=== PATIENT | female | born 1960 | race African-American/Black ===

== ENCOUNTER 2019-08-09 21:15 | Inpatient (IN) | payer SELFPAY ==
[2019-08-09 22:15] LABS: #Eosinphils 0.4 thou/uL (0.0-0.7); #Lymphocytes 2.1 thou/uL (1.20-3.40); #Monocytes 0.5 thou/uL (0.11-0.59); #Neutrophils 4.9 thou/uL (1.40-6.50); %Basophils 0.6 % (0.0-1.0); %Eosinophils 4.8 % (0.0-10.0); %Lymphocytes 26.8 % (21.0-51.0); %Monocytes 6.3 % (0.0-10.0); %Neutrophils 61.6 % (42.0-75.0); Hemoglobin 12.7 g/dL (12.0-16.0); Mean Corpuscular HGB CONC 30.4 g/dL (32.0-36.0); Mean Corpuscular Volume 79.1 fL (78.0-98.0); Mean Platelet Volume 9.4 fL (7.4-10.4); Platelet Count 343 thou/uL (130-400); RBC Distribution Width 15.2 % (11.5-14.5); Red Blood Cell (RBC) Count 5.28 mill/uL (4.20-5.40); White Blood Cell (WBC) Count 7.9 thou/uL (4.8-10.8)
[2019-08-09 22:36] LABS: ALT (SGPT) 28 U/L (8-55); AST (SGOT) 34 U/L (5-34); Albumin 2.2 g/dL (3.5-5.0); Alkaline Phosphatase 102 U/L (40-110); Anion Gap 12 mmol/L (10-20); BUN (Urea Nitrogen) 19 mg/dL (9.8-20.1); Bilirubin, Total Less than 0.2 mg/dL (0.2-1.2); Calc. Creatinine Clearance 0 mL/min (70-130); Calcium 8.3 mg/dL (7.8-10.44); Carbon Dioxide 25 mmol/L (22-29); Chloride 111 mmol/L (98-107); Estimated GFR-MDRD 29; Globulin 3.7 g/dL (2.4-3.5); Glucose 128 mg/dL (70-105); Potassium 4.1 mmol/L (3.5-5.1); Protein, Total 5.9 g/dL (6.0-8.3); Sodium 144 mmol/L (136-145)
[2019-08-09] MEDS ORDERED: Furosemide 40 MG/4 ML VIAL ONE (22:43)
--- NOTE | 2019-08-09 22:47 | RAD ---
EXAM: CHEST ONE VIEW HISTORY: Bilateral lower extremity edema for 4 months. COMPARISON: None FINDINGS: Cardiac silhouette is enlarged. Pulmonary vasculature is at the upper limits of normal. The lungs are clear. The osseous structures are intact. IMPRESSION: 1. Cardiomegaly. 2. No acute cardiopulmonary process
[2019-08-09 23:13] LABS: CKMB 8.1 ng/mL (0-6.6)
--- NOTE | 2019-08-10 00:29 | PDOC.HHP ---
Hospitalist HPI - History of Present Illness Swelling and shortness of breath History of Present Illness: 59 yo AAF with DM-2 on insulin, HTN presented to ER due to worsening swelling in her legs and SOB. She states that she has had swelling in her legs since March,. The swelling has been getting worse. She states that she has been informed she has CHF and she is on lasix but has continued to gain weight. She reports abdominal distention and worsening shortness of breath. Currently, she states she is short of breath even with sitting. She reports orthopnea and PND. She states that her leg swelling is upto her thighs. No N/V/D/C. No fever, chills. She denies CP or lightheadedness but has palpitations with minimal activity. No rash or bruising. No burning or pain with urination. ED Course: Given 40 mg Lasix and placed on Nitropaste Hospitalist ROS - Review of Systems All other systems reviewed; all pertinent +/- noted in HPI/Subj Hospitalist History - Past Medical History Source: patient Cardiac: reports: CHF, HTN Endocrine: reports: Diabetes - Past Surgical History Past Surgical History: reports: Cholecystectomy, Hysterectomy, Other (Left toe amputation) - Family History Family History: reports: cardiac disorder (brothers) - Social History Smoking Status: Former smoker Tobacco Type: cigarettes Alcohol: reports: Occassional Drugs: reports: none Living Situation: Alone Activity level: independent ambulation - Exam General Appearance: awake alert, ill appearing Eye: PERRL, anicteric sclera ENT: normocephalic atraumatic, no oropharyngeal lesions, moist mucosa Neck: supple, symmetric, no thyromegaly, no lymphadenopathy Heart: RRR, no murmur, no gallops, no rubs, normal peripheral pulses Heart - other findings: 3+ bilateral pitting pedal edema upto the thighs; abdominal wall edema Respiratory: no wheezes, no ronchi, normal chest expansion, no tachypnea, rales (bilaterally) Gastrointestinal: soft, non-tender, normal bowel sounds, no palpable masses, distended Extremities: no cyanosis, clubbing Skin: normal turgor, no lesions, no rashes Neurological: cranial nerve grossly intact, normal sensation to touch, no weakness, no focal deficits, no new deficit Psychiatric: normal affect, normal behavior, A&O x 3 Hospitalist Results - Labs Result Diagrams: 03/04/20 21:59 08/09/19 21:59 Lab results: WBC 7.9 thou/uL (4.8-10.8) 08/09/19 21:59 Hgb 12.7 g/dL (12.0-16.0) 08/09/19 21:59 Hct 41.8 % (36.0-47.0) 08/09/19 21:59 MCV 79.1 fL (78.0-98.0) 08/09/19 21:59 Plt Count 343 thou/uL (130-400) 08/09/19 21:59 Neutrophils % 61.6 % (42.0-75.0) 08/09/19 21:59 Sodium 144 mmol/L (136-145) 08/09/19 21:59 Potassium 4.1 mmol/L (3.5-5.1) 08/09/19 21:59 Chloride 111 mmol/L (98-107) H 08/09/19 21:59 Carbon Dioxide 25 mmol/L (22-29) 08/09/19 21:59 BUN 19 mg/dL (9.8-20.1) 08/09/19 21:59 Creatinine 1.78 mg/dL (0.6-1.1) H 08/09/19 21:59 Glucose 128 mg/dL (70-105) H 08/09/19 21:59 Calcium 8.3 mg/dL (7.8-10.44) 08/09/19 21:59 Total Bilirubin Less than 0.2 mg/dL (0.2-1.2) L 08/09/19 21:59 AST 34 U/L (5-34) 08/09/19 21:59 ALT 28 U/L (8-55) 08/09/19 21:59 Alkaline Phosphatase 102 U/L (40-110) 08/09/19 21:59 CK-MB (CK-2) 8.1 ng/mL (0-6.6) H* 08/09/19 21:59 Troponin I 0.037 ng/mL (< 0.028) H 08/09/19 21:59 B-Natriuretic Peptide 211.9 pg/mL (0-100) H 08/09/19 21:59 Serum Total Protein 5.9 g/dL (6.0-8.3) L 08/09/19 21:59 Albumin 2.2 g/dL (3.5-5.0) L 08/09/19 21:59 - EKG Interpretation EKG: Personally reviewed - Sinus rhythm; T-inversions in leads I & aVL - Radiology Interpretation Chest x-ray Status: image reviewed by me (No consolidation; Pulmonary vascular congestion) Hospitalist H&P A/P - Problem (1) CHF (congestive heart failure) Code(s): I50.9 - HEART FAILURE, UNSPECIFIED Status: Acute Qualifiers: Heart failure type: unspecified Heart failure chronicity: acute Qualified Code(s): I50.9 - Heart failure, unspecified Assessment and Plan: Admit to inpatient status. Expected to stay at least 2 midnights High risk due to need for IV diuretics and need for evaluation and management of her CHF IV lasix; Fluid and salt restriction Daily wts. Strict I/Os Cardio consult ECHO Elevated troponins and EKG changes likely related to demand ischemia (2) Pedal edema Code(s): R60.0 - LOCALIZED EDEMA Status: Acute Assessment and Plan: Likely related to CHF Will obtain US venous dopplers to R/o DVT Will obtain arterial dopplers as patient reports angioplasty for PAD in September, (3) DM type 2 (diabetes mellitus, type 2) Status: Chronic Qualifiers: Diabetes mellitus terminal worker insulin use: with mcc use Diabetes mellitus complication status: with kidney complications Diabetes mellitus complication detail: with chronic kidney disease Chronic kidney disease stage : stage 3 (moderate) Qualified Code(s): E11.22 - Type 2 diabetes mellitus with diabetic chronic kidney disease; N18.3 - Chronic kidney disease, stage 3 ( moderate); Z79.4 - remote computer terminal operator (current) use of insulin Assessment and Plan: Check HA1C Diabetic diet Basal and SSI Monitor sugars and adjust regimen accordingly (4) HTN (hypertension) Code(s): I10 - ESSENTIAL (PRIMARY) HYPERTENSION Status: Chronic Qualifiers: Hypertension type: essential hypertension Qualified Code(s): I10 - Essential (primary) hypertension Assessment and Plan: Elevated BP likely related to volume overload and Acute CHF Nitro paste placed on patient IV diuretics Monitor BP and adjust meds as needed - Plan Plan: CODE STATUS - FULL CODE Granddaughter is health care proxy
[2019-08-10] MEDS ORDERED: Nitroglycerin 2% Ointment 1 INCH/1 GM Packet ONE (00:30)
[2019-08-10] MEDS ORDERED: Ondansetron PF 4 MG/2 ML Vial IVP PRN (00:49)
[2019-08-10] MEDS ORDERED: Senokot S 8.6-50 MG TAB PO PRN (00:49)
[2019-08-10] MEDS ORDERED: Dextrose 50% Abboject 50 ML SYRINGE SLOW IVP PRN (00:57)
[2019-08-10] MEDS ORDERED: Dextrose 5% in Water 1,000 ML IV PRN (00:57)
[2019-08-10] MEDS ORDERED: HumaLOG 300 UNITS/3 ML VIAL SC PRN (00:57)
[2019-08-10 02:15] LABS: Hemoglobin A1c 6.5 % (4.0-6.0)
[2019-08-10 02:30] LABS: Troponin I 0.026 ng/mL (< 0.028)
[2019-08-10] MEDS ORDERED: Acetaminophen 325 MG TAB ONE (03:59)
[2019-08-10] MEDS: Acetaminophen 325 MG TAB PO PRN (04:01)
[2019-08-10 06:44] LABS: #Basophils 0.1 thou/uL (0.0-0.2); #Eosinphils 0.3 thou/uL (0.0-0.7); #Monocytes 0.5 thou/uL (0.11-0.59); #Neutrophils 4.2 thou/uL (1.40-6.50); %Basophils 0.8 % (0.0-1.0); %Eosinophils 4.2 % (0.0-10.0); %Lymphocytes 28.4 % (21.0-51.0); %Monocytes 6.5 % (0.0-10.0); %Neutrophils 60.1 % (42.0-75.0); Hemoglobin 12.4 g/dL (12.0-16.0); Mean Corpuscular HGB CONC 30.4 g/dL (32.0-36.0); Mean Corpuscular Hemoglobin 24.8 pg (27.0-31.0); Mean Corpuscular Volume 81.5 fL (78.0-98.0); Mean Platelet Volume 9.4 fL (7.4-10.4); Platelet Count 317 thou/uL (130-400); RBC Distribution Width 15.6 % (11.5-14.5); Red Blood Cell (RBC) Count 5.01 mill/uL (4.20-5.40)
[2019-08-10 06:58] LABS: Phosphorus 4.2 mg/dL (2.3-4.7)
[2019-08-10 07:05] LABS: Troponin I 0.021 ng/mL (< 0.028)
[2019-08-10 07:17] LABS: ALT (SGPT) 26 U/L (8-55); AST (SGOT) 31 U/L (5-34); Alkaline Phosphatase 89 U/L (40-110); Anion Gap 11 mmol/L (10-20); BUN (Urea Nitrogen) 19 mg/dL (9.8-20.1); Bilirubin, Total 0.2 mg/dL (0.2-1.2); Calc. Creatinine Clearance 67 mL/min (70-130); Calcium 7.6 mg/dL (7.8-10.44); Carbon Dioxide 23 mmol/L (22-29); Chloride 114 mmol/L (98-107); Estimated GFR-MDRD 38; Globulin 2.8 g/dL (2.4-3.5); Glucose 118 mg/dL (70-105); Magnesium 1.9 mg/dL (1.6-2.6); Protein, Total 4.8 g/dL (6.0-8.3); Sodium 144 mmol/L (136-145)
--- NOTE | 2019-08-10 09:06 | ULT ---
BILATERAL LOWER EXTREMITY VENOUS DOPPLER ULTRASOUND: HISTORY: Bilateral lower extremity edema. TECHNIQUE: Carvajal scale, color flow, and spectral Doppler imaging of the deep venous systems of the lower extremit ies performed bilaterally. FINDINGS: There is good flow, compression, and augmentation in the common femoral, femoral, deep femoral, popli teal, posterior tibial, and greater saphenous veins on either side. IMPRESSION: No evidence of deep vein thrombosis in either lower extremity. POS: [facility]
[2019-08-10] MEDS ORDERED: Haloperidol 1 MG TAB ONE (09:28)
[2019-08-10] MEDS ORDERED: Aspirin Chewable 81 MG TAB ONE (09:28)
[2019-08-10] MEDS ORDERED: Furosemide 20 MG/2 ML VIAL ONE (09:28)
[2019-08-10] MEDS ORDERED: Furosemide 40 MG/4 ML VIAL ONE (09:28)
[2019-08-10] MEDS ORDERED: Heparin 1,000 UNITS/ML VIAL ONE (09:28)
--- NOTE | 2019-08-10 09:36 | ULT ---
BILATERAL LOWER EXTREMITY DOPPLER ULTRASOUND: DATE: 08/10/2019. HISTORY: Peripheral arterial disease. TECHNIQUE: Multiplanar grayscale sonographic imaging of the arterial structures of bilateral lower extremities o btained with color flow/spectral analysis. FINDINGS: The right common femoral artery is patent and demonstrates a biphasic waveform as does the right prof unda femoral artery. The superficial femoral artery on the right is patent and demonstrates an abnormal monophasic waveform. There is patency of the right popliteal artery with an abnormal tardus parvis monophasic waveform. Right anterior tibial artery, posterior tibial artery, and dorsalis pedis artery are patent and also demonstrate abnormal monophasic tardus parvus waveforms. The left common femoral artery is patent and demonstrates a biphasic waveform as does the left profun da femoral artery. A normal triphasic waveform is noted within the proximal left superficial femoral artery. In the mid and distal left superficial femoral artery there is an abnormal monophasic waveform. Abnormal tardus parvus monophasic waveforms are noted within the left popliteal artery, anterior tibial artery, posterior tibial artery, and dorsalis pedis artery. The left posterior tibial artery demonstrates a markedly diminished amplitude. Right Lower Extremity: VESSEL PSV (CM/S) SENIOR SOURCING MANAGER 199 Profunda femoral artery 108 SFA proximal 186 SFA mid 53 SFA distal 69 Popliteal artery 42 EZE 46 PERFORMANCE ANALYST 34 DPA 34 Left Lower Extremity: VESSEL PSV (CM/S) SENIOR SOURCING MANAGER 104 Profunda femoral artery 121 SFA proximal 158 SFA mid 130 SFA distal 140 Popliteal artery 71 EZE 85 PERFORMANCE ANALYST 18 DPA 94 IMPRESSION: Arterial structures of bilateral lower extremities are patent. There are markedly abnormal monophasic waveforms noted within bilateral lower extremities from the mid SFA through the runoff vessels indicating multifocal hemodynamically significant stenosis. Recommend further assessment via CT angio gram of the abdomen/pelvis/bilateral lower extremities utilizing a CT runoff protocol. Transcribed Date/Time: 08/10/2019 10:01 AM
[2019-08-10] MEDS: Aspirin Chewable 81 MG TAB PO SCH (09:43)
[2019-08-10] MEDS: Heparin 5,000 UNITS/ML VIAL SC SCH ×3 (09:43→20:51)
[2019-08-10] MEDS: Furosemide 100 MG/10 ML VIAL SLOW IVP SCH ×3 (09:43→20:52)
--- NOTE | 2019-08-10 09:44 | ULT ---
BILATERAL RENAL ULTRASOUND: DATE: 08/10/2019 HISTORY: Acute kidney insufficiency, chronic kidney disease. FINDINGS: The right kidney measures 10.2 cm in length and the left kidney measures 11.9 cm in length. No hydron ephrosis seen on either side. There is a 4.4 x 4.0 x 4.5 cm right renal cyst. Cortical echogenicity a nd thickness is otherwise within normal limits. The urinary bladder is unremarkable with a volume of 279 mL. IMPRESSION: Right renal cyst. POS: [facility]
[2019-08-10] MEDS: HumuLIN 70/30 (300 UNITS/3 ML VIAL) SC SCH ×2 (10:45→16:40)
[2019-08-10] MEDS ORDERED: hydrALAZINE 25 MG TAB PO SCH (11:45)
[2019-08-10] MEDS ORDERED: Carvedilol 25 MG TAB PO SCH (11:45)
--- NOTE | 2019-08-10 14:42 | CON ---
DATE OF CONSULTATION: HISTORY OF PRESENT ILLNESS: The patient is a 59-year-old woman, who presents for evaluation of increasing dyspnea and edema. The patient states she has previous history of congestive heart failure. The patient has been treated on chronic diuretic therapy. The patient states that she has been compliant with her medication. She has a history of peripheral vascular disease and previously undergone PTCA of her extremities. The patient has multiple cardiac risk factors and states she has been compliant with her medication. She presented with worsening edema. The patient denied having any chest discomfort. PAST MEDICAL HISTORY: 1. Peripheral vascular disease. 2. Hypertension. 3. Diabetes mellitus. 4. Dyslipidemia. PAST SURGICAL HISTORY: Toe amputation, hysterectomy, and cholecystectomy. SOCIAL HISTORY: Former smoker. ALLERGIES: NO KNOWN DRUG ALLERGIES. MEDICATIONS: See nursing list. PHYSICAL EXAMINATION: GENERAL: Obese woman, in no acute distress. VITAL SIGNS: Blood pressure 180/80. NECK: Showed no jugular venous distention. LUNGS: Clear to auscultation. HEART: Regular rate and rhythm. Normal S1 and S2. 1/6 systolic murmur. No S3. ABDOMEN: Distended with a scar. EXTREMITIES: Showed severe bilateral edema. LABORATORY RESULTS: Sodium 144, potassium 4.0, chloride 114, bicarb 23, BUN 19, creatinine 1.68, and glucose is 118. Troponin was 0.021. White blood cell count 7.0, hemoglobin 12.4, hematocrit 40.8, and her platelets are 317. IMAGING DATA: rEKG normal sinus rhythm with a nonspecific T-wave abnormality. IMPRESSION: 1. Congestive heart failure probably secondary to diastolic dysfunction. 2. Peripheral vascular disease. 3. Hypertension. 4. Diabetes mellitus. 5. Dyslipidemia. 6. Obesity. PLAN: This patient presents with congestive heart failure. We will obtain an echocardiogram. The patient is being diuresed with IV Lasix. We will try to adjust her cardiac medications. We will need followup including at some point stress testing to evaluate for evidence of ischemia. We will follow this patient with you through her hospitalization. Job ID: [id number] [facility]
[2019-08-10 15:17] VITALS: BMI 38.0
--- NOTE | 2019-08-10 16:32 | PDOC.HOSPP ---
- Subjective Encounter Date: 08/10/19 Encounter Time: 15:00 Subjective: F/u: CHF The patient says she ambulated to bathroom without significant Shortness of breath. She has no chest pain. Still has significant leg swelling. She states she ate 800 mg of sodium so far today She states she gaind over 20 pounds of fluid - Objective Vital Signs & Weight: Vital Signs (12 hours) Temp Pulse Pulse Resp BP BP Pulse Ox 08/10/19 13:25 99.2 F 70 18 181/79 H 96 08/10/19 11:30 66 184/107 H Weight Weight 257 lb 6.4 oz Result Diagrams: 08/10/19 06:30 08/10/19 06:30 Additional Labs: Accuchecks 08/10/19 08/10/19 10:44 06:41 POC Glucose 93 104 Hospitalist ROS - Review of Systems Constitutional: denies: fever, chills Respiratory: denies: cough, dry - Medication Medications: Active Medications Generic Name Dose Route Start Last Admin Trade Name Freq PRN Reason Stop Dose Admin Acetaminophen 650 mg 08/10/19 00:49 08/10/19 04:01 Tylenol PO 650 mg Q4H PRN Administration Headache/Fever/Mild Pain (1-3) Aspirin 81 mg 08/10/19 09:00 08/10/19 09:43 Aspirin Chewable PO 81 mg DAILY IVETH Administration Furosemide 60 mg 08/10/19 09:00 08/10/19 09:43 Lasix SLOW IVP 60 mg TID IVETH Administration Heparin Sodium (Porcine) 5,000 units 08/10/19 09:00 08/10/19 09:43 Heparin SC 5,000 units TID IVETH Administration Insulin Human Isoph/Insulin Regular 10 units 08/10/19 08:00 08/10/19 10:45 Humulin 70/30 SC 10 unit BID-WM IVETH Administration - Exam General Appearance: NAD, awake alert Eye: PERRL, anicteric sclera ENT: normocephalic atraumatic, no oropharyngeal lesions Neck: no JVD Heart: RRR, no murmur, no gallops, no rubs Respiratory: CTAB Respiratory - other findings: mild rales at bases Gastrointestinal: soft, non-tender, non-distended Extremities: no cyanosis, no clubbing, 2+ LE edema Skin: normal turgor, no lesions, no rashes Neurological: cranial nerve grossly intact, normal sensation to touch, no focal deficits, no new deficit Musculoskeletal: normal tone, normal strength, no muscle wasting Hosp A/P - Plan ECHO: EF 55-60%, moderate MR, moderate to severe TR, moderate pulmonary hypertension Chest X ray: no acute disease Renal ultrasound: right renal cyst Venous ultrasound: no evidence of DVT Lower extremity arterial ultrasound: PAD from mid SFA downwards This is a 59 year old female who presented with SOB, orthopnea, weight gain, admitted for CHF exacerbation Acute diastolic CHF exacerbation - continue lasix 60 mg IV tid - cardiology is consulted and following - initial troponin 0.037, repeat negative - continue aspirin, statin, coreg - intake and output q4 hours, daily weights Hypertensive Urgency - BP 180 systolic - started coreg 25 mg bid, hydralazine 25 mg po bid \ PHYLLIS - secondary to cardiorenal - creatinine improved to 1.68 Peripheral vascular disease - has peripheral arterial disease on arterial ulitrasound from mid SFA down. Hold off on additional imagine due to elevated creatinine Right renal cyst - noted on renal ultrasound. Outpatient follow up Code status: full code
[2019-08-10] MEDS: Carvedilol 25 MG TAB PO SCH (16:40)
[2019-08-10 17:48] LABS: Bacteria/HPF None Seen HPF (None Seen); Bilirubin Negative (Negative); Blood, Urine 1+ (Negative); Clarity Clear (Clear); Glucose, Urine (Dipstick) 100 mg/dL (Negative); Leukocyte Negative Leu/uL (Negative); Nitrite Negative (Negative); Protein, Urine (Dipstick) 300 mg/dL (Neg-Trace); RBC/HPF 0-3 HPF (0-3); Squamous Epithelial 0-3 HPF (0-3); Urobilinogen Normal mg/dL (Less than 2); WBC/HPF 0-3 HPF (0-3)
[2019-08-10 18:07] LABS: Creatinine, Urine 21.47 mg/dL (47-110)
[2019-08-10] MEDS: hydrALAZINE 25 MG TAB PO SCH (20:52)
[2019-08-10] MEDS ORDERED: Atorvastatin Calcium 40 MG TAB PO SCH (21:00)
--- NOTE | 2019-08-11 00:20 | CON ---
DATE OF CONSULTATION: 08/10/2019 CONSULTING PHYSICIAN: William Conti MD REASON FOR CONSULTATION: Acute kidney injury. REASON FOR ADMISSION: Shortness of breath. HISTORY OF PRESENT ILLNESS: This is a 59-year-old female with history of CHF, hypertension, and diabetes, came to the hospital with worsening shortness of breath and fluid gain. No fever or chills. No nausea or vomiting. No chest pain. PAST MEDICAL HISTORY: Positive for CHF, hypertension, diabetes. PAST SURGICAL HISTORY: Cholecystectomy and hysterectomy. HOME MEDICATIONS: Reviewed. ALLERGIES: NO KNOWN DRUG ALLERGIES. SOCIAL HISTORY: No smoking, alcohol, or illicit drug abuse. FAMILY HISTORY: No history of kidney disease. REVIEW OF SYSTEMS: CONSTITUTIONAL: Negative for weight loss or gain, ability to conduct usual activities. SKIN: Negative for rash, itching. EYES: Negative for double vision, pain. ENT/MOUTH: Negative for nose bleeding, neck stiffness, pain, tenderness. CARDIOVASCULAR: Negative for palpitations, dyspnea on exertion, orthopnea. RESPIRATORY: Negative for shortness of breath, wheezing, cough, hemoptysis, fever or night sweats. GASTROINTESTINAL: Negative for poor appetite, abdominal pain, heartburn, nausea, vomiting, constipation, or diarrhea. GENITOURINARY: Negative for urgency, frequency, dysuria, nocturia. MUSCULOSKELETAL: Negative for pain, swelling. NEUROLOGIC/PSYCHIATRIC: Negative for anxiety, depression. ALLERGY/IMMUNOLOGIC: Negative for skin rash, bleeding tendency. PHYSICAL EXAMINATION: GENERAL: This is a well-built female, in no apparent distress. VITAL SIGNS: Temperature 98.2, pulse 70, respiratory rate 18, blood pressure 181/79. HEENT: Atraumatic, normocephalic. Oral mucosa is moist. NECK: Supple. CV: S1 and S2 heard. Regular rate and rhythm. RESPIRATORY: Clear.. GASTROINTESTINAL: Abdomen is soft. MUSCULOSKELETAL: 1+ edema. DERMATOLOGIC: No skin rash. NEUROLOGIC: Alert and awake. PSYCHIATRIC: Mood and affect normal. LABORATORY DATA: Hemoglobin is 12.4. Potassium 4.0. BUN is 19, creatinine is 1.6. ASSESSMENT AND PLAN: 1. Acute kidney injury on chronic kidney stage 3. Agree with Lasix for now. We will monitor renal function. 2. Edema, controlled. 3. We will check for proteinuria. 4. Secondary hyperparathyroidism. We will check vitamin D level also. 5. Mild anemia. 6. Cardiorenal syndrome. 7. History of hypertension, titrate medication. 8. Okay with Lasix and monitor renal function. Job ID: [id number]
[2019-08-11 04:45] LABS: Hemoglobin 12.1 g/dL (12.0-16.0); Mean Corpuscular HGB CONC 31.4 g/dL (32.0-36.0); Mean Corpuscular Volume 79.6 fL (78.0-98.0); Mean Platelet Volume 10.1 fL (7.4-10.4); Platelet Count 259 thou/uL (130-400); RBC Distribution Width 15.3 % (11.5-14.5); Red Blood Cell (RBC) Count 4.84 mill/uL (4.20-5.40); White Blood Cell (WBC) Count 6.6 thou/uL (4.8-10.8)
[2019-08-11 05:00] LABS: Anion Gap 11 mmol/L (10-20); BUN (Urea Nitrogen) 17 mg/dL (9.8-20.1); Calc. Creatinine Clearance 71 mL/min (70-130); Carbon Dioxide 23 mmol/L (22-29); Cardiac Risk 5.3 (Less than 4.5); Chloride 110 mmol/L (98-107); Cholesterol 218 mg/dl (< 200 Desired); Estimated GFR-MDRD 41; Glucose 74 mg/dL (70-105); HDL Cholesterol 41 mg/dL (>60 Neg Risk); LDL Cholesterol, Calculated 148 mg/dL; Potassium 3.7 mmol/L (3.5-5.1); Sodium 140 mmol/L (136-145); Triglycerides 144 mg/dL (Less than 150)
--- NOTE | 2019-08-11 08:48 | NM ---
VQ SCAN: HISTORY: Pedal edema. Concern for pulmonary embolism TECHNIQUE: A ventilation/perfusion scan was performed using 7.6 mCi xenon-133 by inhalation for the ventilation study followed by the intravenous administration of 6.6 mCi technetium 99m-MAA for the perfusion scan. CORRELATION: Chest radiograph from same date. FINDINGS: Homogeneous is noted in the tracer distribution to the lung angelo bilaterally on ventilation and per fusion scans. No mismatched pleural-based, wedge-shaped, segmental or subsegmental perfusion defects are identified . IMPRESSION: Very low probability for pulmonary embolism.
[2019-08-11] MEDS: Heparin 5,000 UNITS/ML VIAL SC SCH ×3 (08:54→20:20)
[2019-08-11] MEDS: Furosemide 100 MG/10 ML VIAL SLOW IVP SCH ×2 (08:54→20:19)
[2019-08-11] MEDS: hydrALAZINE 25 MG TAB PO SCH ×3 (08:55→20:17)
[2019-08-11] MEDS: Carvedilol 25 MG TAB PO SCH ×2 (08:55→17:32)
[2019-08-11] MEDS: Aspirin Chewable 81 MG TAB PO SCH (08:55)
[2019-08-11] MEDS: HumuLIN 70/30 (300 UNITS/3 ML VIAL) SC SCH ×2 (08:56→17:33)
[2019-08-11] MEDS ORDERED: hydrALAZINE 25 MG TAB PO SCH ×2 (09:00→21:30)
--- NOTE | 2019-08-11 09:04 | RAD ---
PA AND LATERAL VIEWS CHEST: Date: 08/11/2019 HISTORY: Pedal edema. COMPARISON: 08/09/2019. FINDINGS/IMPRESSION: The heart is enlarged with mild pulmonary vascular congestion. No lobar consolidation, pneumothoraces , or large effusions are seen. There are small posterior pleural effusions. Findings are suspicious f or CHF. POS: [facility]
[2019-08-11] MEDS: hydrALAZINE 20 MG/ML VIAL SLOW IVP PRN (11:18)
[2019-08-11] MEDS ORDERED: cloNIDine 0.1 MG TAB PO SCH (15:15)
--- NOTE | 2019-08-11 19:19 | RAD ---
RADIOGRAPH CHEST 1 VIEW: DATE: 08/11/2019 TIME: 6:43 PM HISTORY: 59-year-old female with sepsis COMPARISON: 08/11/2019 8:33 AM FINDINGS: Widening of transverse diameter of heart, which is at least partly due to magnification. Mild patchy airspace density at medial left lower lobe base, nonspecific, either mild atelectasis or pneumonia. No josue pulmonary edema. No pneumothorax. No major interval change. IMPRESSION: 1) no major interval change. 2) nonspecific mild airspace density at medial base of left lower lobe.
[2019-08-11] MEDS: Atorvastatin Calcium 40 MG TAB PO SCH (20:17)
[2019-08-11] MEDS: NIFEdipine XL 60 MG TAB PO SCH (20:21)
[2019-08-11] MEDS: cloNIDine 0.1 MG TAB PO SCH (20:21)
--- NOTE | 2019-08-11 20:22 | PRG ---
DATE OF SERVICE: 08/11/2019 SUBJECTIVE: Patient was seen and examined at bedside and overnight events noted. Patient denies any shortness of breath or chest pain or palpitation. No history of nausea or vomiting or diarrhea or fever or chills or cramps. OBJECTIVE: GENERAL: This is a well-built female, in no apparent distress. VITAL SIGNS: Temperature 98.2. Heart rate 67. Respiratory rate 20. Blood pressure 192/83. HEENT: Atraumatic, normocephalic. Oral mucosa is moist NECK: Supple. CARDIOVASCULAR: S1, S2 heard. Rate and rhythm regular. RESPIRATORY: Clear to auscultation. GASTROINTESTINAL: Abdomen is soft. MUSCULOSKELETAL: No tenderness. No edema. DERMATOLOGIC: No skin rash. NEUROLOGIC: Alert and awake and oriented X3. No focal neurologic deficits. Moving all the extremities. PSYCHIATRIC: Mood and affect normal. LABORATORY DATA: Potassium 3.7, BUN is 17, creatinine is 1.5. ASSESSMENT AND PLAN: 1. Acute kidney injury on chronic kidney disease, stage 3, on Lasix, monitor. 2. Edema, better. 3. Mild anemia. 4. Cardiorenal syndrome. 5. History of hypertension. We will titrate medication. 6. Secondary hyperparathyroidism. We will check vitamin D level. We will follow. Job ID: [id number]
--- NOTE | 2019-08-11 21:24 | PDOC.HOSPP ---
- Subjective Encounter Date: 08/11/19 Encounter Time: 18:00 Subjective: The patient is doing better. She states she has not had her weight checked today. She still leg swelling and feels SOB while walking to the bathroom. No chest pain. BP high all day. Hydralazine increased to 50 mg by cardiology. Clonidine added. Imdur added as well - Objective Vital Signs & Weight: Vital Signs (12 hours) Pulse Pulse Pulse BP BP BP BP 08/11/19 20:21 97 200/86 H 08/11/19 20:17 97 200/84 H 08/11/19 15:35 200/86 H 08/11/19 15:34 67 200/86 H 08/11/19 13:39 60 08/11/19 11:18 60 195/78 H 08/11/19 11:16 60 195/78 H 08/11/19 10:20 64 61 186/83 H 195/80 H BP 08/11/19 20:21 08/11/19 20:17 08/11/19 15:35 08/11/19 15:34 08/11/19 13:39 192/83 H 08/11/19 11:18 08/11/19 11:16 08/11/19 10:20 Weight Weight 260 lb 8 oz I&O: 08/10/19 08/11/19 08/12/19 06:59 06:59 06:59 Intake Total 1406 675 Output Total 2375 Balance -969 675 Result Diagrams: 08/11/19 04:12 08/11/19 04:12 Additional Labs: Accuchecks 08/11/19 08/11/19 08/11/19 20:50 16:43 11:00 POC Glucose 101 103 107 08/11/19 06:21 POC Glucose 77 Hospitalist ROS - Review of Systems Constitutional: denies: fever, chills Respiratory: denies: cough, dry - Medication Medications: Active Medications Generic Name Dose Route Start Last Admin Trade Name Freq PRN Reason Stop Dose Admin Acetaminophen 650 mg 08/10/19 00:49 08/10/19 04:01 Tylenol PO 650 mg Q4H PRN Administration Headache/Fever/Mild Pain (1-3) Aspirin 81 mg 08/10/19 09:00 08/11/19 08:55 Aspirin Chewable PO 81 mg DAILY IVETH Administration Atorvastatin Calcium 80 mg 08/11/19 21:00 08/11/19 20:17 Lipitor PO 80 mg HS IVETH Administration Carvedilol 25 mg 08/10/19 17:00 08/11/19 17:32 Coreg PO 25 mg BID-WM IVETH Administration Clonidine 0.1 mg 08/11/19 21:00 08/11/19 20:21 Catapres PO 0.1 mg BID IVETH Administration Furosemide 60 mg 08/10/19 21:00 08/11/19 20:19 Lasix SLOW IVP 60 mg BID IVETH Administration Heparin Sodium (Porcine) 5,000 units 08/10/19 09:00 08/11/19 20:20 Heparin SC 5,000 units TID IVETH Administration Hydralazine HCl 10 mg 08/11/19 01:54 08/11/19 11:18 Apresoline SLOW IVP 10 mg Q4H PRN Administration SBP Greater Than 180 Hydralazine HCl 50 mg 08/11/19 15:00 08/11/19 20:17 Apresoline PO 50 mg TID IVETH Administration Insulin Human Isoph/Insulin Regular 10 units 08/10/19 08:00 08/11/19 17:33 Humulin 70/30 SC Not Given BID-WM IVETH Nifedipine 60 mg 08/11/19 21:00 08/11/19 20:21 Procardia Xl PO 60 mg BID IVETH Administration - Exam General Appearance: NAD, awake alert Eye: PERRL, anicteric sclera ENT: normocephalic atraumatic, no oropharyngeal lesions Neck: supple, no JVD Heart: RRR, no murmur, no gallops, no rubs Respiratory: CTAB, no rales, no ronchi Gastrointestinal: soft, non-tender, non-distended Extremities: 1+ LE edema Hosp A/P - Plan ECHO: EF 55-60%, moderate MR, moderate to severe TR, moderate pulmonary hypertension Chest X ray: no acute disease Renal ultrasound: right renal cyst Venous ultrasound: no evidence of DVT Lower extremity arterial ultrasound: PAD from mid SFA downwards This is a 59 year old female who presented with SOB, orthopnea, weight gain, admitted for CHF exacerbation Acute diastolic CHF exacerbation with moderate pulmonary hypertension - on lasix 60 mg IV bid - cardiology following, increased metoprolol to 50 mg bid - initial troponin 0.037, repeat negative - continue aspirin, statin, coreg - intake and output q4 hours, daily weights Hypertensive Urgency - BP > 200 systolic -continue coreg 25 mg bid, increase hydralazine to 75 mg tid, lasix 60 mg IV bid - clonidine 0.1 mg bid, resume nifedipine 60 mg bid PHYLLIS - secondary to cardiorenal - creatinine improved to 1.58. Nephrology is following Peripheral vascular disease - has peripheral arterial disease on arterial ulitrasound from mid SFA down. Hold off on additional imagine due to elevated creatinine Right renal cyst - noted on renal ultrasound. Outpatient follow up Code status: full code
[2019-08-12] MEDS: hydrALAZINE 20 MG/ML VIAL SLOW IVP PRN (00:40)
[2019-08-12 04:34] LABS: Hemoglobin 12.1 g/dL (12.0-16.0); Mean Corpuscular Volume 78.2 fL (78.0-98.0); Mean Platelet Volume 9.5 fL (7.4-10.4); Platelet Count 296 thou/uL (130-400); RBC Distribution Width 15.3 % (11.5-14.5); Red Blood Cell (RBC) Count 4.85 mill/uL (4.20-5.40)
[2019-08-12 04:53] LABS: Anion Gap 10 mmol/L (10-20); BUN (Urea Nitrogen) 19 mg/dL (9.8-20.1); Calc. Creatinine Clearance 72 mL/min (70-130); Calcium 8.4 mg/dL (7.8-10.44); Carbon Dioxide 26 mmol/L (22-29); Chloride 110 mmol/L (98-107); Estimated GFR-MDRD 41; Glucose 126 mg/dL (70-105); Potassium 3.5 mmol/L (3.5-5.1); Sodium 142 mmol/L (136-145)
[2019-08-12] MEDS: cloNIDine 0.1 MG TAB PO SCH ×2 (09:00→20:38)
[2019-08-12] MEDS: hydrALAZINE 25 MG TAB PO SCH ×3 (09:00→20:37)
[2019-08-12] MEDS: NIFEdipine XL 60 MG TAB PO SCH ×2 (09:00→20:38)
[2019-08-12] MEDS: Carvedilol 25 MG TAB PO SCH ×2 (10:00→17:45)
[2019-08-12] MEDS: Aspirin Chewable 81 MG TAB PO SCH (10:01)
[2019-08-12] MEDS: Heparin 5,000 UNITS/ML VIAL SC SCH ×3 (10:05→20:39)
[2019-08-12] MEDS: Furosemide 100 MG/10 ML VIAL SLOW IVP SCH ×2 (10:10→20:36)
[2019-08-12] MEDS: Isosorbide Mononitrate (ER) 30 MG TAB PO SCH (10:10)
[2019-08-12] MEDS: HumuLIN 70/30 (300 UNITS/3 ML VIAL) SC SCH ×2 (11:03→17:58)
--- NOTE | 2019-08-12 12:55 | PRG ---
DATE OF SERVICE: 08/12/2019 SUBJECTIVE: Patient was seen and examined at bedside and overnight events noted. Patient denies any shortness of breath or chest pain or palpitation. No history of nausea or vomiting or diarrhea or fever or chills or cramps. OBJECTIVE: General: This is well-built female, in no acute distress. Vital Signs: Temperature 98.1, pulse 60, respiratory rate , blood pressure 138/69. HEENT: Atraumatic, normocephalic. Oral mucosa is moist. Neck: Supple. Cardiovascular: S1, S2 heard. Rate and rhythm regular. Respiratory: Clear to auscultation. Gastrointestinal: Abdomen is soft. Musculoskeletal: No tenderness. No edema. Dermatologic: No skin rash. Neurologic: Alert and awake and oriented x3. No focal neurologic deficits. Moving all the extremities. Psychiatric: Mood and affect normal. LABORATORY DATA: Potassium 3.5, BUN is 19, and creatinine 1.5. ASSESSMENT AND PLAN: 1. Acute kidney injury on chronic kidney stage 3, stable. 2. Edema, better. 3. Cardiorenal syndrome. 4. History of hypertension. 5. Secondary hyperparathyroidism. Started on vitamin D. 6. Vitamin D deficiency. Plan is to start vitamin D. Job ID: [id number]
--- NOTE | 2019-08-12 18:24 | PDOC.HOSPP ---
- Subjective Subjective: Follow-up evaluation on acute diastolic congestive heart failure exacerbation. Blood pressure has been uncontrolled. Lower extremity peripheral arterial disease present. We're planning for a nuclear medicine stress test per cardiology. Patient breathing more comfortably today. States that are legs are less swollen. Time was given for questions, all answered in detail. - Objective Vital Signs & Weight: Vital Signs (12 hours) Temp Pulse Resp BP BP BP Pulse Ox 08/12/19 17:49 162/77 H 08/12/19 16:32 98.3 F 55 L 18 175/79 H 96 08/12/19 15:42 98.1 F 61 16 154/60 H 95 08/12/19 12:10 98 F 60 18 133/93 H 96 08/12/19 10:06 62 118/58 L 08/12/19 07:49 98.1 F 60 16 138/60 95 Weight Weight 257 lb 6.4 oz I&O: 08/11/19 08/12/19 08/13/19 06:59 06:59 07:59 Intake Total 1406 1425 Output Total 2375 1800 Balance -969 375 Result Diagrams: 08/12/19 04:17 08/12/19 04:17 Additional Labs: Accuchecks 08/12/19 08/12/19 08/12/19 17:29 10:46 05:45 POC Glucose 81 235 H 111 H 08/11/19 20:50 POC Glucose 101 Radiology Reviewed by me: Yes Hospitalist ROS - Review of Systems All other systems reviewed; all pertinent +/- noted in HPI/Subj - Medication Medications: Active Medications Generic Name Dose Route Start Last Admin Trade Name Freq PRN Reason Stop Dose Admin Acetaminophen 650 mg 08/10/19 00:49 08/10/19 04:01 Tylenol PO 650 mg Q4H PRN Administration Headache/Fever/Mild Pain (1-3) Aspirin 81 mg 08/10/19 09:00 08/12/19 10:01 Aspirin Chewable PO 81 mg DAILY IVETH Administration Atorvastatin Calcium 80 mg 08/11/19 21:00 08/11/19 20:17 Lipitor PO 80 mg HS IVETH Administration Carvedilol 25 mg 08/10/19 17:00 08/12/19 17:45 Coreg PO 25 mg BID-WM IVETH Administration Clonidine 0.1 mg 08/11/19 21:00 08/12/19 09:00 Catapres PO Not Given BID IVETH Furosemide 60 mg 08/10/19 21:00 08/12/19 10:10 Lasix SLOW IVP 60 mg BID IVETH Administration Heparin Sodium (Porcine) 5,000 units 08/10/19 09:00 08/12/19 15:46 Heparin SC 5,000 units TID IVETH Administration Hydralazine HCl 10 mg 08/11/19 01:54 08/12/19 00:40 Apresoline SLOW IVP 10 mg Q4H PRN Administration SBP Greater Than 180 Hydralazine HCl 75 mg 08/12/19 09:00 08/12/19 15:46 Apresoline PO 75 mg TID IVETH Administration Insulin Human Isoph/Insulin Regular 10 units 08/10/19 08:00 08/12/19 17:58 Humulin 70/30 SC Not Given BID-WM IVETH Isosorbide Mononitrate 30 mg 08/12/19 09:00 08/12/19 10:10 Imdur Er PO 30 mg DAILY IVETH Administration Nifedipine 60 mg 08/11/19 21:00 08/12/19 09:00 Procardia Xl PO Not Given BID IVETH Sodium Chloride 10 ml 08/11/19 21:00 08/12/19 10:22 Flush - Normal Saline IVF 10 ml Q12HR IVETH Administration - Exam General Appearance: NAD, awake alert Eye: PERRL ENT: normocephalic atraumatic, moist mucosa Neck: supple, symmetric, no lymphadenopathy Heart: no murmur, no gallops, no rubs Respiratory: no wheezes, no ronchi, normal chest expansion, no tachypnea, rales Gastrointestinal: soft, non-tender, non-distended, no guarding, no rigidity Extremities - other findings: +3 LE edema Skin: no lesions, no rashes Neurological: cranial nerve grossly intact, no focal deficits Musculoskeletal: generalized weakness Psychiatric: normal affect, normal behavior, A&O x 3 Hosp A/P (1) CHF (congestive heart failure) Code(s): I50.9 - HEART FAILURE, UNSPECIFIED Status: Acute Qualifiers: Heart failure type: unspecified Heart failure chronicity: acute Qualified Code(s): I50.9 - Heart failure, unspecified (2) Pedal edema Code(s): R60.0 - LOCALIZED EDEMA Status: Acute (3) DM type 2 (diabetes mellitus, type 2) Status: Chronic Qualifiers: Diabetes mellitus medical terminologist insulin use: with medical terminologist use Diabetes mellitus complication status: with kidney complications Diabetes mellitus complication detail: with chronic kidney disease Chronic kidney disease stage : stage 3 (moderate) Qualified Code(s): E11.22 - Type 2 diabetes mellitus with diabetic chronic kidney disease; N18.3 - Chronic kidney disease, stage 3 ( moderate); Z79.4 - intermediate frame tender (current) use of insulin (4) HTN (hypertension) Code(s): I10 - ESSENTIAL (PRIMARY) HYPERTENSION Status: Chronic Qualifiers: Hypertension type: essential hypertension Qualified Code(s): I10 - Essential (primary) hypertension - Plan Plan: medical unit with telemetry cardiology consultation, recommendations appreciated nuclear medicine stress test to rule out reversible ischemia when able blood pressure control, medications being adjusted daily IV Lasix for acute diastolic congestive heart failure exacerbation cardiomyopathy regimen per cardiology avoid volume overload fluid restrictions blood sugar control G.I. prophylaxis DVT prophylaxis
--- NOTE | 2019-08-12 20:28 | PDOC.CPN ---
- Subjective Date: 08/12/19 Time: 20:26 Interval history: No new issues. No angina. - Review of Systems General: denies: fever/chills, weight/appetite/sleep changes, night sweats, fatigue Respiratory: denies: cough, congestion, shortness of breath, exercise intolerance Cardiovascular: denies: chest pain, palpitation, edema, paroxysmal nocturnal dyspnea, orthopnea Gastrointestinal: denies: nausea, vomiting, diarrhea, constipation, abd pain, GI bleeding Musculoskeletal: denies: pain, tenderness, stiffness, swelling, arthritis/ arthralgias Neurological: denies: numbness, syncope, seizure, weakness - Objective Allergies/Adverse Reactions: Allergies Allergy/AdvReac Type Severity Reaction Status Date / Time No Known Drug Allergies Allergy Verified 08/10/19 15:47 Visit Medications: Current Medications Acetaminophen (Tylenol) 650 mg PO Q4H PRN PRN Reason: Headache/Fever/Mild Pain (1-3) Last Admin: 08/10/19 04:01 Dose: 650 mg Aspirin (Aspirin Chewable) 81 mg PO DAILY [facility] Last Admin: 08/12/19 10:01 Dose: 81 mg Atorvastatin Calcium (Lipitor) 80 mg PO HS [facility] Last Admin: 08/11/19 20:17 Dose: 80 mg Carvedilol (Coreg) 25 mg PO BID-WM [facility] Last Admin: 08/12/19 17:45 Dose: 25 mg Clonidine (Catapres) 0.1 mg PO BID [facility] Last Admin: 08/12/19 09:00 Dose: Not Given Dextrose/Water (Dextrose 50%) 25 gm SLOW IVP PRN PRN PRN Reason: Hypoglycemia Ergocalciferol (Drisdol) 1.25 mg PO Q7DAYS [facility] Furosemide (Lasix) 60 mg SLOW IVP BID [facility] Last Admin: 08/12/19 10:10 Dose: 60 mg Glucagon (Glucagon) 1 mg IM PRN PRN PRN Reason: Hypoglycemia Heparin Sodium (Porcine) (Heparin) 5,000 units SC TID [facility] Last Admin: 08/12/19 15:46 Dose: 5,000 units Hydralazine HCl (Apresoline) 10 mg SLOW IVP Q4H PRN PRN Reason: SBP Greater Than 180 Last Admin: 08/12/19 00:40 Dose: 10 mg Hydralazine HCl (Apresoline) 75 mg PO TID [facility] Last Admin: 08/12/19 15:46 Dose: 75 mg Dextrose/Water (D5w) 1,000 mls @ 0 mls/hr IV .Q0M PRN PRN Reason: Hypoglycemia Insulin Human Isoph/Insulin Regular (Humulin 70/30) 10 units SC BID-WM [facility] Last Admin: 08/12/19 17:58 Dose: Not Given Insulin Human Lispro (Humalog) 0 units SC .MILD SLIDING SCALE PRN PRN Reason: Mild Correctional Scale Isosorbide Mononitrate (Imdur Er) 30 mg PO DAILY [facility] Last Admin: 08/12/19 10:10 Dose: 30 mg Nifedipine (Procardia Xl) 60 mg PO BID [facility] Last Admin: 08/12/19 09:00 Dose: Not Given Ondansetron HCl (Zofran) 4 mg IVP Q6H PRN PRN Reason: Nausea/Vomiting Senna/Docusate Sodium (Senokot S) 2 tab PO BID PRN PRN Reason: Constipation Sodium Chloride (Flush - Normal Saline) 10 ml IVF Q12HR [facility] Last Admin: 08/12/19 10:22 Dose: 10 ml Sodium Chloride (Flush - Normal Saline) 10 ml IVF PRN PRN PRN Reason: Saline Flush Vital Signs & Weight: Vital Signs Temp Pulse Resp BP BP BP Pulse Ox 08/12/19 17:49 162/77 H 08/12/19 16:32 98.3 F 55 L 18 175/79 H 96 08/12/19 15:42 98.1 F 61 16 154/60 H 95 08/12/19 12:10 98 F 60 18 133/93 H 96 08/12/19 10:06 62 118/58 L Weight 257 lb 6.4 oz - Physical Exam General: alert & oriented x3 HEENT: mucus membranes moist Neck: supple neck Cardiac: regular rate and rhythm Lungs: clear to auscultation Neuro: grossly intact Abdomen: active bowel sounds Extremities: no edema Skin: clear Musculoskeletal: no pain - Labs Result Diagrams: 08/12/19 04:17 08/12/19 04:17 Troponin/CKMB CK-MB (CK-2) 8.1 ng/mL (0-6.6) H* 08/09/19 21:59 Troponin I 0.021 ng/mL (< 0.028) 08/10/19 06:30 - Telemetry Sinus rhythms and dysrhythmias: sinus rhythm - Assessment/Plan Assessment/Plan: 1. Acute on chronic diastolic dysfunction. 2. Elevated right sided pressures. 3. PVD 4. HTN 5. DMT2. PLAN: - Stress test pending, second part tomorrow. - Disposition pending results of stress.
[2019-08-12] MEDS: Atorvastatin Calcium 40 MG TAB PO SCH (20:39)
[2019-08-13] MEDS: HumuLIN 70/30 (300 UNITS/3 ML VIAL) SC SCH ×2 (08:00→17:03)
[2019-08-13] MEDS ORDERED: Ergocalciferol 1.25 MG(50,000 UNITS) CAP PO SCH (09:00)
[2019-08-13] MEDS: Carvedilol 25 MG TAB PO SCH (12:09)
[2019-08-13] MEDS: cloNIDine 0.1 MG TAB PO SCH ×2 (12:10→21:02)
[2019-08-13] MEDS: Aspirin Chewable 81 MG TAB PO SCH (12:10)
[2019-08-13] MEDS: Furosemide 100 MG/10 ML VIAL SLOW IVP SCH ×2 (12:13→21:02)
[2019-08-13] MEDS: Heparin 5,000 UNITS/ML VIAL SC SCH ×3 (12:15→21:03)
[2019-08-13] MEDS: hydrALAZINE 25 MG TAB PO SCH ×3 (12:16→21:01)
[2019-08-13] MEDS: Isosorbide Mononitrate (ER) 30 MG TAB PO SCH (12:16)
[2019-08-13] MEDS: NIFEdipine XL 60 MG TAB PO SCH ×2 (12:17→21:01)
[2019-08-13] MEDS ORDERED: Regadenoson 0.4 MG/5 ML SYRINGE ONE (13:09)
--- NOTE | 2019-08-13 13:36 | PRG ---
DATE OF SERVICE: 08/13/2019 SUBJECTIVE: Patient was seen and examined at bedside and overnight events noted. Patient denies any shortness of breath or chest pain or palpitation. No history of nausea or vomiting or diarrhea or fever or chills or cramps. OBJECTIVE: GENERAL: This is a well-built female, in no apparent distress. VITAL SIGNS: Temperature , heart rate 60, respiratory rate 18, and blood pressure 144/60. HEENT: Atraumatic, normocephalic. Oral mucosa is moist NECK: Supple. CARDIOVASCULAR: S1, S2 heard. Rate and rhythm regular. RESPIRATORY: Clear to auscultation. GASTROINTESTINAL: Abdomen is soft. MUSCULOSKELETAL: No tenderness. No edema. DERMATOLOGIC: No skin rash. NEUROLOGIC: Alert and awake and oriented X3. No focal neurologic deficits. Moving all the extremities. PSYCHIATRIC: Mood and affect normal. ASSESSMENT AND PLAN: 1. Acute kidney injury, on chronic , stable. 2. Edema. 3. Cardiorenal syndrome. 4. Hypertension. 5. Secondary hyperparathyroidism. 6. Vitamin D deficiency. Plan to continue on current management and avoid nephrotoxins. We will follow. Job ID: [id number]
--- NOTE | 2019-08-13 15:15 | PDOC.HOSPP ---
- Subjective Subjective: Denies chest pain. Breathing comfortably on room air. We are pending stress test. Patient wants to go home. - Objective Vital Signs & Weight: Vital Signs (12 hours) Temp Pulse Resp BP Pulse Ox 08/13/19 11:57 97.9 F 59 L 18 146/66 H 96 08/13/19 07:40 98.1 F 60 18 144/60 H 95 08/13/19 03:40 98.9 F 61 18 144/65 H 95 Weight Weight 260 lb I&O: 08/12/19 08/13/19 08/14/19 05:59 06:59 06:59 Intake Total Output Total Balance Result Diagrams: 08/12/19 04:17 08/12/19 04:17 Additional Labs: Accuchecks 08/13/19 08/13/19 08/12/19 11:49 05:45 20:42 POC Glucose 134 H 113 H 116 H 08/12/19 17:29 POC Glucose 81 Radiology Reviewed by me: Yes Hospitalist ROS - Review of Systems All other systems reviewed; all pertinent +/- noted in HPI/Subj - Medication Medications: Active Medications Generic Name Dose Route Start Last Admin Trade Name Freq PRN Reason Stop Dose Admin Acetaminophen 650 mg 08/10/19 00:49 08/10/19 04:01 Tylenol PO 650 mg Q4H PRN Administration Headache/Fever/Mild Pain (1-3) Aspirin 81 mg 08/10/19 09:00 08/13/19 12:10 Aspirin Chewable PO 81 mg DAILY IVETH Administration Atorvastatin Calcium 80 mg 08/11/19 21:00 08/12/19 20:39 Lipitor PO 80 mg HS IVETH Administration Carvedilol 25 mg 08/10/19 17:00 08/13/19 12:09 Coreg PO 25 mg BID-WM IVETH Administration Clonidine 0.1 mg 08/11/19 21:00 08/13/19 12:10 Catapres PO 0.1 mg BID IVETH Administration Ergocalciferol 1.25 mg 08/13/19 09:00 08/13/19 12:13 Drisdol PO 1.25 mg Q7DAYS IVETH Administration Furosemide 60 mg 08/10/19 21:00 08/13/19 12:13 Lasix SLOW IVP 60 mg BID IVETH Administration Heparin Sodium (Porcine) 5,000 units 08/10/19 09:00 08/13/19 12:15 Heparin SC 5,000 units TID IVETH Administration Hydralazine HCl 10 mg 08/11/19 01:54 08/12/19 00:40 Apresoline SLOW IVP 10 mg Q4H PRN Administration SBP Greater Than 180 Hydralazine HCl 75 mg 08/12/19 09:00 08/13/19 12:16 Apresoline PO 75 mg TID IVETH Administration Insulin Human Isoph/Insulin Regular 10 units 08/10/19 08:00 08/12/19 17:58 Humulin 70/30 SC Not Given BID-WM IVETH Isosorbide Mononitrate 30 mg 08/12/19 09:00 08/13/19 12:16 Imdur Er PO 30 mg DAILY IVETH Administration Nifedipine 60 mg 08/11/19 21:00 08/13/19 12:17 Procardia Xl PO 60 mg BID IVETH Administration Sodium Chloride 10 ml 08/11/19 21:00 08/13/19 12:17 Flush - Normal Saline IVF 10 ml Q12HR IVETH Administration - Exam General Appearance: NAD, awake alert Eye: anicteric sclera ENT: normocephalic atraumatic, moist mucosa Neck: supple, symmetric, no lymphadenopathy Heart: no murmur, no gallops, no rubs, normal peripheral pulses Respiratory: CTAB, no wheezes, no rales, no ronchi, normal chest expansion Gastrointestinal: soft, non-tender, non-distended, no splenomegaly, no rigidity Extremities: 1+ LE edema Skin: no lesions, no rashes Neurological: cranial nerve grossly intact, no weakness Musculoskeletal: normal strength Psychiatric: A&O x 3 Hosp A/P (1) CHF (congestive heart failure) Code(s): I50.9 - HEART FAILURE, UNSPECIFIED Status: Acute Qualifiers: Heart failure type: unspecified Heart failure chronicity: acute Qualified Code(s): I50.9 - Heart failure, unspecified (2) Pedal edema Code(s): R60.0 - LOCALIZED EDEMA Status: Acute (3) DM type 2 (diabetes mellitus, type 2) Status: Chronic Qualifiers: Diabetes mellitus marine erector insulin use: with intermediate use Diabetes mellitus complication status: with kidney complications Diabetes mellitus complication detail: with chronic kidney disease Chronic kidney disease stage : stage 3 (moderate) Qualified Code(s): E11.22 - Type 2 diabetes mellitus with diabetic chronic kidney disease; N18.3 - Chronic kidney disease, stage 3 ( moderate); Z79.4 - care home (current) use of insulin (4) HTN (hypertension) Code(s): I10 - ESSENTIAL (PRIMARY) HYPERTENSION Status: Chronic Qualifiers: Hypertension type: essential hypertension Qualified Code(s): I10 - Essential (primary) hypertension - Plan Plan: medical unit with telemetry cardiology consultation, recommendations appreciated nuclear medicine stress test to rule out reversible ischemia results pending, Dispo pending result blood pressure control, medications being adjusted daily IV Lasix for acute diastolic congestive heart failure exacerbation, oral on D/c cardiomyopathy regimen per cardiology avoid volume overload fluid restrictions blood sugar control G.I. prophylaxis DVT prophylaxis
[2019-08-13] MEDS: hydrALAZINE 20 MG/ML VIAL SLOW IVP PRN (16:38)
--- NOTE | 2019-08-13 17:20 | PDOC.CPN ---
- Subjective Date: 08/13/19 Time: 17:19 Interval history: No new issues. No angina. - Review of Systems General: denies: fever/chills, weight/appetite/sleep changes, night sweats, fatigue Respiratory: denies: cough, congestion, shortness of breath, exercise intolerance Cardiovascular: denies: chest pain, palpitation, edema, paroxysmal nocturnal dyspnea, orthopnea Gastrointestinal: denies: nausea, vomiting, diarrhea, constipation, abd pain, GI bleeding Musculoskeletal: denies: pain, tenderness, stiffness, swelling, arthritis/ arthralgias Neurological: denies: numbness, syncope, seizure, weakness - Objective Allergies/Adverse Reactions: Allergies Allergy/AdvReac Type Severity Reaction Status Date / Time No Known Drug Allergies Allergy Verified 08/10/19 15:47 Visit Medications: Current Medications Acetaminophen (Tylenol) 650 mg PO Q4H PRN PRN Reason: Headache/Fever/Mild Pain (1-3) Last Admin: 08/10/19 04:01 Dose: 650 mg Aspirin (Aspirin Chewable) 81 mg PO DAILY [facility] Last Admin: 08/13/19 12:10 Dose: 81 mg Atorvastatin Calcium (Lipitor) 80 mg PO HS [facility] Last Admin: 08/12/19 20:39 Dose: 80 mg Carvedilol (Coreg) 25 mg PO 2100 [facility] Stop: 08/13/19 23:00 Carvedilol (Coreg) 25 mg PO BID-[facility] Clonidine (Catapres) 0.1 mg PO BID [facility] Last Admin: 08/13/19 12:10 Dose: 0.1 mg Dextrose/Water (Dextrose 50%) 25 gm SLOW IVP PRN PRN PRN Reason: Hypoglycemia Ergocalciferol (Drisdol) 1.25 mg PO Q7DAYS [facility] Last Admin: 08/13/19 12:13 Dose: 1.25 mg Furosemide (Lasix) 60 mg SLOW IVP BID [facility] Last Admin: 08/13/19 12:13 Dose: 60 mg Glucagon (Glucagon) 1 mg IM PRN PRN PRN Reason: Hypoglycemia Heparin Sodium (Porcine) (Heparin) 5,000 units SC TID [facility] Last Admin: 08/13/19 15:30 Dose: Not Given Hydralazine HCl (Apresoline) 10 mg SLOW IVP Q4H PRN PRN Reason: SBP Greater Than 180 Last Admin: 08/13/19 16:38 Dose: 10 mg Hydralazine HCl (Apresoline) 75 mg PO TID [facility] Last Admin: 08/13/19 15:31 Dose: Not Given Dextrose/Water (D5w) 1,000 mls @ 0 mls/hr IV .Q0M PRN PRN Reason: Hypoglycemia Insulin Human Isoph/Insulin Regular (Humulin 70/30) 10 units SC BID-[facility] Last Admin: 08/13/19 08:00 Dose: Not Given Insulin Human Lispro (Humalog) 0 units SC .MILD SLIDING SCALE PRN PRN Reason: Mild Correctional Scale Isosorbide Mononitrate (Imdur Er) 30 mg PO DAILY [facility] Last Admin: 08/13/19 12:16 Dose: 30 mg Nifedipine (Procardia Xl) 60 mg PO BID [facility] Last Admin: 08/13/19 12:17 Dose: 60 mg Ondansetron HCl (Zofran) 4 mg IVP Q6H PRN PRN Reason: Nausea/Vomiting Senna/Docusate Sodium (Senokot S) 2 tab PO BID PRN PRN Reason: Constipation Sodium Chloride (Flush - Normal Saline) 10 ml IVF Q12HR [facility] Last Admin: 08/13/19 12:17 Dose: 10 ml Sodium Chloride (Flush - Normal Saline) 10 ml IVF PRN PRN PRN Reason: Saline Flush Vital Signs & Weight: Vital Signs Temp Pulse Resp BP Pulse Ox 08/13/19 16:21 98.1 F 55 L 18 180/75 H 95 08/13/19 11:57 97.9 F 59 L 18 146/66 H 96 08/13/19 07:40 98.1 F 60 18 144/60 H 95 Weight 260 lb - Physical Exam General: alert & oriented x3 HEENT: mucus membranes moist Neck: supple neck Cardiac: regular rate and rhythm Lungs: normal breath sounds Neuro: grossly intact Abdomen: active bowel sounds Extremities: no edema Skin: clear Musculoskeletal: no pain - Labs Result Diagrams: 08/12/19 04:17 08/12/19 04:17 Troponin/CKMB CK-MB (CK-2) 8.1 ng/mL (0-6.6) H* 08/09/19 21:59 Troponin I 0.021 ng/mL (< 0.028) 08/10/19 06:30 - Telemetry Sinus rhythms and dysrhythmias: sinus rhythm - Assessment/Plan Assessment/Plan: 1. Acute on chronic diastolic dysfunction. 2. Elevated right sided pressures. 3. PVD 4. HTN 5. DMT2. PLAN: - Stress test pending at time of my note. - I did speak to her about possible LHC if stres is positive and she agrees to proceed. - Disposition pending results of stress.
[2019-08-13] MEDS ORDERED: Carvedilol 25 MG TAB PO SCH (21:00)
[2019-08-13] MEDS: Atorvastatin Calcium 40 MG TAB PO SCH (21:01)
[2019-08-14] MEDS: Acetaminophen 325 MG TAB PO PRN (04:16)
[2019-08-14] MEDS: NIFEdipine XL 60 MG TAB PO SCH (09:19)
[2019-08-14] MEDS: Isosorbide Mononitrate (ER) 30 MG TAB PO SCH (09:19)
[2019-08-14] MEDS: hydrALAZINE 25 MG TAB PO SCH ×2 (09:20→16:07)
[2019-08-14] MEDS: Aspirin Chewable 81 MG TAB PO SCH (09:20)
[2019-08-14] MEDS: Carvedilol 25 MG TAB PO SCH ×2 (09:21→17:07)
[2019-08-14] MEDS: Heparin 5,000 UNITS/ML VIAL SC SCH ×2 (09:21→16:08)
[2019-08-14] MEDS: Furosemide 100 MG/10 ML VIAL SLOW IVP SCH (09:22)
[2019-08-14] MEDS: HumuLIN 70/30 (300 UNITS/3 ML VIAL) SC SCH ×2 (09:22→17:07)
--- NOTE | 2019-08-14 09:37 | NM ---
Radionucleotide stress and rest myocardial perfusion scan with CT attenuation correction and SPECT im aging Left ventricular wall motion evaluation and ejection fraction HISTORY: Chest pain. Pulmonary edema. FINDINGS: Lexiscan protocol. There is very heterogeneous uptake of radiotracer throughout the left ve ntricular myocardium. Large fixed defect at the inferolateral wall. Breast attenuation at the anterior wall, less pronounced on the nonattenuation correction images. No reversibility reliably dem onstrated. QGS analysis of gated SPECT images show diminished thickening and motion of the inferolateral wall. E jection fraction calculated at 50%. 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 No scintigraphic evidence of is chemia. Borderline left ventricular ejection fraction of 50%.
[2019-08-14 09:51] LABS: Anion Gap 9 mmol/L (10-20); BUN (Urea Nitrogen) 24 mg/dL (9.8-20.1); Calc. Creatinine Clearance 59 mL/min (70-130); Calcium 8.4 mg/dL (7.8-10.44); Carbon Dioxide 26 mmol/L (22-29); Chloride 110 mmol/L (98-107); Estimated GFR-MDRD 32; Glucose 127 mg/dL (70-105); Potassium 3.6 mmol/L (3.5-5.1); Sodium 141 mmol/L (136-145)
--- NOTE | 2019-08-14 11:30 | PRG ---
DATE OF SERVICE: 08/14/2019 SUBJECTIVE: A 59-year-old female being seen for acute kidney injury. The patient denied nausea, vomiting or chest pain. PHYSICAL EXAMINATION: General: The patient is awake and alert. Vital Signs: Afebrile, pulse 80, breathing at 16, blood pressure 132/59. HEENT: Head normocephalic and atraumatic. Eyes intact, no ulcers. Nose intact , no ulcers. Ears intact, no ulcers. Neck: Supple. No JVD. Chest: Symmetrical and clear. Cardiovascular: Shows S1 and S2, no rub, no murmur. Gastrointestinal: Abdomen is soft, bowel sounds positive. Extremities: Show no edema or ulcers. Skin: Shows no rash or petechiae. Musculoskeletal: Shows no joint swelling or stiffness. Genitourinary: Shows no Kilpatrick or CVA tenderness. Neurologic: Motor intact. Cranial nerves intact. LABORATORY DATA: Labs show hemoglobin 12.1, creatinine 1.8. ASSESSMENT AND PLAN: 1. Acute kidney injury, chronic kidney disease, cardiorenal syndrome. No indication for dialysis. 2. Hypertension, stable. 3. Anemia, stable. 4. Medication based on GFR appropriate. Job ID: [id number] [facility]
[2019-08-14 17:12] VITALS: BP 125/79; TEMP 98
--- NOTE | 2019-08-15 05:59 | DIS ---
DATE OF ADMISSION: 08/10/2019 DATE OF DISCHARGE: 08/14/2019 REASON FOR HOSPITALIZATION: Shortness of breath and leg swelling. SIGNIFICANT FINDINGS: The patient found to have acute CHF exacerbation. PROCEDURES PERFORMED AND TREATMENTS RENDERED: Ms. Mickey Morillo is a very pleasant 59-year-old female, who presented to [facility] on 08/10/2019, with shortness of breath and lower extremity edema. She was diagnosed with congestive heart failure and started on IV Lasix. The patient was admitted to the medical unit with telemetry for close management. Cardiology consultation was requested, please see full consultation notes and progress notes for details. Cardiology adjusting cardiomyopathy regimen as appropriate. The patient with shortness of breath, went for nuclear medicine ventilation perfusion study of the lung and it was found to be very low probability for pulmonary embolism. 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 The patient was again evaluated by Cardiology, who offered to take the patient to the cardiac catheterization lab - please see full progress notes for details. Per Cardiology, the patient declined going for further invasive procedures and she states that she would like to have medical management. The patient was recommended safe for discharge by Cardiology with close followup in the outpatient clinic. I evaluated the patient on 08/14/2019, and she is breathing comfortably on room air. The patient is ambulating without difficulties. The patient has been effectively diuresed with IV Lasix and she is feeling much better. A cardiomyopathy regimen was sent to her preferred pharmacy with efforts through Case Management to help provide the medications at no cost. All medications for cardiomyopathy were adjusted appropriately by orchid superintendent. The patient was recommended safe for discharge with close followup in the outpatient setting, and she has an appointment at the [facility] tomorrow morning at 8 in the morning, she is strongly encouraged to keep this appointment. CONDITION ON DISCHARGE: Stable. SPECIFIC INSTRUCTIONS FOR THE PATIENT/FAMILY: 1. Follow up in [facility] tomorrow at her appointment. 2. To take all medications as directed, return to acute care hospital immediately if she is unable to take any medication as directed explicitly. 3. The patient recommended to follow up with primary care physician tomorrow morning at her upcoming appointment and have all medications adjusted as appropriate. 4. The patient recommended to follow up with Cardiology in the next 1 to 2 weeks. 5. The patient recommended to follow up with heart failure clinic in the next 1 to 2 weeks. 6. The patient recommended to have a strict fluid restriction diet to avoid future episodes of congestive heart failure. 7. The patient recommended to return to acute care hospital immediately if she is having any new symptoms or her original symptoms recur, the patient also recommended to return to acute care hospital immediately if she is unable to cooperate with any of the previously mentioned steps, the patient understands this and states that she will return to the hospital as directed if she cannot follow up with previously mentioned steps. DISCHARGE MEDICATIONS: 1. Nifedipine 60 mg one tablet p.o. b.i.d. 2. Carvedilol 25 mg one tablet p.o. b.i.d. 3. Aspirin 81 mg one tablet p.o. daily. 4. Hydralazine 100 mg one tablet p.o. t.i.d. 5. Potassium chloride 10 mEq one tablet p.o. b.i.d. 6. Imdur 30 mg extended release one tablet p.o. daily. 7. Furosemide 40 mg one tablet p.o. daily. 8. Plavix 75 mg one tablet p.o. daily. 9. Atorvastatin 80 mg one tablet p.o. at bedtime. TIME SPENT: Greater than 39 minutes spent coordinating care and discharge process for this patient. Job ID: [id number]
== END 2019-08-14 17:48 | disposition home or self-care (01) | DRG 291 ==
LOC: ERS 21:15 → ERHOLD 08-10 00:33 → 2NO 08-10 13:24
PROVIDERS: ADMIT Internal Medicine Sleep Medicine; ATTEND Internal Medicine
DX: I13.0 Hypertensive heart and chronic kidney disease with heart failure and stage 1 through stage 4 chronic kidney disease, or unspecified chronic kidney disease (principal); I50.33 Acute on chronic diastolic (congestive) heart failure; N17.9 Acute kidney failure, unspecified; N25.81 Secondary hyperparathyroidism of renal origin; E78.5 Hyperlipidemia, unspecified; N28.1 Cyst of kidney, acquired; I73.9 Peripheral vascular disease, unspecified; E66.9 Obesity, unspecified; D63.1 Anemia in chronic kidney disease; N18.3 Chronic kidney disease, stage 3 (moderate); E55.9 Vitamin D deficiency, unspecified; E11.22 Type 2 diabetes mellitus with diabetic chronic kidney disease; I16.0 Hypertensive urgency; Z79.4 Long term (current) use of insulin; Z90.49 Acquired absence of other specified parts of digestive tract; Z90.710 Acquired absence of both cervix and uterus; Z87.891 Personal history of nicotine dependence; Z89.422 Acquired absence of other left toe(s); Z98.42 Cataract extraction status, left eye; Z98.41 Cataract extraction status, right eye; Z68.38 Body mass index [BMI] 38.0-38.9, adult
CPT/HCPCS: 36415; 36416; 71045; 71046; 76770; 78452; 78582; 80048; 80053; 80061; 81003; 81015; 82306; 82553; 82570; 83036; 83735; 83880; 83970; 84100; 84156; 84484; 85025; 85027; 93005; 93017; 93306; 93798; 93923; 93970; 96374; A9500; A9540; A9558; J0360; J1644; J1815; J1940; J2785

== ENCOUNTER 2019-10-10 13:23 | Emergency (ER) | payer MEDICAID, OTHER ==
[2019-10-10 14:47] LABS: #Eosinphils 0.3 thou/uL (0.0-0.7); #Lymphocytes 2.3 thou/uL (1.20-3.40); #Monocytes 0.7 thou/uL (0.11-0.59); #Neutrophils 4.4 thou/uL (1.40-6.50); %Basophils 0.3 % (0.0-1.0); %Eosinophils 3.4 % (0.0-10.0); %Lymphocytes 29.8 % (21.0-51.0); %Neutrophils 57.4 % (42.0-75.0); Hemoglobin 12.4 g/dL (12.0-16.0); Mean Corpuscular HGB CONC 31.4 g/dL (32.0-36.0); Mean Corpuscular Hemoglobin 25.2 pg (27.0-31.0); Mean Corpuscular Volume 80.3 fL (78.0-98.0); Mean Platelet Volume 10.3 fL (7.4-10.4); Platelet Count 249 thou/uL (130-400); Red Blood Cell (RBC) Count 4.92 mill/uL (4.20-5.40); White Blood Cell (WBC) Count 7.7 thou/uL (4.8-10.8)
[2019-10-10 15:09] LABS: ALT (SGPT) 14 U/L (8-55); AST (SGOT) 11 U/L (5-34); Albumin 2.3 g/dL (3.5-5.0); Alkaline Phosphatase 76 U/L (40-110); Anion Gap 13 mmol/L (10-20); BUN (Urea Nitrogen) 28 mg/dL (9.8-20.1); Bilirubin, Total 0.3 mg/dL (0.2-1.2); Calc. Creatinine Clearance 0 mL/min (70-130); Calcium 8.9 mg/dL (7.8-10.44); Carbon Dioxide 21 mmol/L (22-29); Chloride 113 mmol/L (98-107); Estimated GFR-MDRD 31; Globulin 3.4 g/dL (2.4-3.5); Glucose 102 mg/dL (70-105); Potassium 4.5 mmol/L (3.5-5.1); Protein, Total 5.7 g/dL (6.0-8.3); Sodium 142 mmol/L (136-145)
[2019-10-10] MEDS ORDERED: Ketorolac Tromethamine 30 MG/ML VIAL ONE (15:22)
== END 2019-10-10 16:09 | disposition home or self-care (01) ==
LOC: ERS 13:23
DX: S00.12XA Contusion of left eyelid and periocular area, initial encounter (principal); I13.0 Hypertensive heart and chronic kidney disease with heart failure and stage 1 through stage 4 chronic kidney disease, or unspecified chronic kidney disease; I50.9 Heart failure, unspecified; N18.9 Chronic kidney disease, unspecified; E11.22 Type 2 diabetes mellitus with diabetic chronic kidney disease; E78.5 Hyperlipidemia, unspecified; Z87.891 Personal history of nicotine dependence; Z79.891 Long term (current) use of opiate analgesic; Z79.899 Other long term (current) drug therapy; W19.XXXA Unspecified fall, initial encounter
CPT/HCPCS: 36415; 80053; 83880; 85025; 93005; 96372; J1885

== ENCOUNTER 2020-11-04 13:39 | Inpatient (IN) | payer OTHER ==
[2020-11-04] MEDS ORDERED: Aspirin Chewable 81 MG TAB ONE ×2 (14:23→14:54)
[2020-11-04] MEDS ORDERED: Nitroglycerin 2% Ointment 1 INCH/1 GM Packet ONE ×2 (14:23→14:54)
[2020-11-04 15:09] LABS: #Lymphocytes 1.7 thou/uL (1.20-3.40); #Monocytes 0.6 thou/uL (0.11-0.59); #Neutrophils 3.9 thou/uL (1.40-6.50); %Eosinophils 0.1 % (0.0-10.0); %Lymphocytes 27.4 % (21.0-51.0); %Monocytes 9.2 % (0.0-10.0); %Neutrophils 63.4 % (42.0-75.0); Hemoglobin 8.9 g/dL (12.0-16.0); Mean Corpuscular HGB CONC 32.5 g/dL (32.0-36.0); Mean Corpuscular Hemoglobin 26.2 pg (27.0-31.0); Mean Corpuscular Volume 80.8 fL (78.0-98.0); Mean Platelet Volume 9.2 fL (7.4-10.4); Platelet Count 289 thou/uL (130-400); RBC Distribution Width 15.9 % (11.5-14.5); White Blood Cell (WBC) Count 6.1 thou/uL (4.8-10.8)
[2020-11-04 15:31] LABS: ALT (SGPT) 15 U/L (8-55); AST (SGOT) 24 U/L (5-34); Albumin 2.6 g/dL (3.5-5.0); Alkaline Phosphatase 98 U/L (40-110); Anion Gap 14 mmol/L (10-20); BUN (Urea Nitrogen) 53 mg/dL (9.8-20.1); Bilirubin, Total 0.3 mg/dL (0.2-1.2); Calc. Creatinine Clearance 0 mL/min (70-130); Calcium 7.3 mg/dL (7.8-10.44); Carbon Dioxide 16 mmol/L (22-29); Chloride 109 mmol/L (98-107); Globulin 3.5 g/dL (2.4-3.5); Glucose 89 mg/dL (70-105); Lipase 95 U/L (8-78); Potassium 4.6 mmol/L (3.5-5.1); Protein, Total 6.1 g/dL (6.0-8.3); Sodium 134 mmol/L (136-145)
[2020-11-04 15:52] LABS: CKMB 2.1 ng/mL (0-6.6)
[2020-11-04] MEDS ORDERED: Dextrose 50% Abboject 50 ML SYRINGE SLOW IVP PRN (16:19)
[2020-11-04] MEDS ORDERED: Ondansetron PF 4 MG/2 ML Vial IVP PRN (16:19)
[2020-11-04] MEDS ORDERED: Ondansetron ODT 4 MG TAB PO PRN (16:19)
[2020-11-04] MEDS ORDERED: Dextrose 5% in Water 1,000 ML IV PRN (16:19)
[2020-11-04] MEDS ORDERED: Calcium Carbonate 500 MG ChewTAB PO PRN (16:19)
[2020-11-04] MEDS ORDERED: HumaLOG 300 UNITS/3 ML VIAL SC PRN ×2 (16:25)
[2020-11-04] MEDS ORDERED: Acetaminophen 500 MG TAB ONE (17:34)
[2020-11-04 18:01] LABS: Hemoglobin A1c 5.6 % (4.0-6.0)
[2020-11-04 18:14] LABS: Troponin I 0.078 ng/mL (< 0.028)
[2020-11-04] MEDS ORDERED: Sodium Bicarbonate 150 MEQ in Dextrose 5% in Water 1,000 ML IV SCH ×2 (19:15→20:00)
[2020-11-04] MEDS: Albumin 25% 25 GM/100 ML BOT IVPB SCH (20:47)
[2020-11-04] MEDS: Atorvastatin Calcium 40 MG TAB PO SCH (20:56)
[2020-11-04] MEDS: Carvedilol 25 MG TAB PO SCH (20:57)
[2020-11-04] MEDS: hydrALAZINE 25 MG TAB PO SCH (20:57)
[2020-11-04] MEDS: Heparin 5,000 UNITS/ML VIAL SC SCH (20:58)
[2020-11-04 21:50] LABS: Troponin I 0.089 ng/mL (< 0.028)
[2020-11-04] MEDS ORDERED: guaiFENesin 200 MG TAB PO PRN (23:02)
[2020-11-04 23:19] LABS: SARS-CoV-2 NAA Rapid Test DETECTED (NotDetected)
[2020-11-05 01:26] LABS: Troponin I 0.058 ng/mL (< 0.028)
[2020-11-05 01:58] LABS: Bacteria/HPF None Seen HPF (None Seen); Bilirubin Negative (Negative); Blood, Urine 2+ (Negative); Clarity Turbid (Clear); Glucose, Urine (Dipstick) 100 mg/dL (Negative); Ketone, Urine Negative (Negative); Leukocyte Negative Leu/uL (Negative); Nitrite Negative (Negative); Protein, Urine (Dipstick) 600 mg/dL (Neg-Trace); RBC/HPF 21-50 HPF (0-3); Specific Gravity, Urine 1.025 (1.002-1.036); Squamous Epithelial 0-3 HPF (0-3); Urobilinogen Normal mg/dL (Less than 2)
[2020-11-05 02:16] LABS: Creatinine, Urine 157.94 mg/dL (47-110)
[2020-11-05] MEDS ORDERED: Benzonatate 100 MG CAP PO PRN ×2 (02:36→02:45)
[2020-11-05] MEDS: Albumin 25% 25 GM/100 ML BOT IVPB SCH ×2 (05:11→08:06)
[2020-11-05 05:44] LABS: #Basophils 0.1 thou/uL (0.0-0.2); #Lymphocytes 0.7 thou/uL (1.20-3.40); #Monocytes 0.4 thou/uL (0.11-0.59); #Neutrophils 5.8 thou/uL (1.40-6.50); %Basophils 1.3 % (0.0-1.0); %Eosinophils 0.1 % (0.0-10.0); %Lymphocytes 9.8 % (21.0-51.0); %Monocytes 5.7 % (0.0-10.0); Hemoglobin 8.6 g/dL (12.0-16.0); Mean Corpuscular HGB CONC 32.1 g/dL (32.0-36.0); Mean Corpuscular Hemoglobin 26.6 pg (27.0-31.0); Mean Corpuscular Volume 82.8 fL (78.0-98.0); Mean Platelet Volume 9.6 fL (7.4-10.4); Platelet Count 258 thou/uL (130-400); RBC Distribution Width 15.9 % (11.5-14.5); Red Blood Cell (RBC) Count 3.25 mill/uL (4.20-5.40)
[2020-11-05 06:04] LABS: ALT (SGPT) 14 U/L (8-55); AST (SGOT) 24 U/L (5-34); Albumin 2.7 g/dL (3.5-5.0); Alkaline Phosphatase 90 U/L (40-110); Anion Gap 15 mmol/L (10-20); BUN (Urea Nitrogen) 56 mg/dL (9.8-20.1); Bilirubin, Total 0.3 mg/dL (0.2-1.2); Calc. Creatinine Clearance 18 mL/min (70-130); Calcium 7.2 mg/dL (7.8-10.44); Carbon Dioxide 17 mmol/L (22-29); Chloride 108 mmol/L (98-107); Globulin 3.3 g/dL (2.4-3.5); Glucose 122 mg/dL (70-105); Potassium 5.2 mmol/L (3.5-5.1); Sodium 135 mmol/L (136-145)
[2020-11-05 06:11] LABS: Iron 8 ug/dL (50-170); Iron Binding Capacity, Total 133 mcg/dL (265-497)
[2020-11-05] MEDS: Cholecalciferol (Vitamin D3) 400 UNITS TAB PO SCH (08:07)
[2020-11-05] MEDS: Aspirin 81 mg Enteric Coated Tablet PO SCH (08:07)
[2020-11-05] MEDS: hydrALAZINE 25 MG TAB PO SCH ×3 (08:07→19:15)
[2020-11-05] MEDS: Carvedilol 25 MG TAB PO SCH ×2 (08:08→19:16)
[2020-11-05] MEDS: Amlodipine 10 MG TAB PO SCH (08:08)
[2020-11-05] MEDS: Dexamethasone 4 MG TAB PO SCH (08:08)
[2020-11-05] MEDS: Heparin 5,000 UNITS/ML VIAL SC SCH ×3 (08:10→19:15)
[2020-11-05] MEDS: Acetaminophen 325 MG TAB PO PRN ×2 (08:22→19:45)
[2020-11-05] MEDS ORDERED: Azithromycin 500 MG in Syringe 0 ML IVPB SCH (09:45)
[2020-11-05] MEDS ORDERED: cefTRIAXone\\ROCEPHIN 1 GM in Sodium Chloride 0.9% 100 ML IVPB SCH (09:45)
[2020-11-05] MEDS: Azithromycin 500 MG in Sodium Chloride 0.9% 250 ML 250 ML IVPB SCH (10:17)
[2020-11-05] MEDS: cefTRIAXone\\ROCEPHIN 1 GM in Sodium Chloride 0.9% 100 ML IVPB SCH (11:45)
[2020-11-05 16:21] LABS: Anion Gap 18 mmol/L (10-20); BUN (Urea Nitrogen) 60 mg/dL (9.8-20.1); Calc. Creatinine Clearance 17 mL/min (70-130); Carbon Dioxide 16 mmol/L (22-29); Chloride 106 mmol/L (98-107); Glucose 149 mg/dL (70-105); Potassium 4.8 mmol/L (3.5-5.1); Sodium 135 mmol/L (136-145)
[2020-11-05] MEDS: Atorvastatin Calcium 40 MG TAB PO SCH (19:16)
[2020-11-06 05:19] LABS: #Lymphocytes 0.5 thou/uL (1.20-3.40); #Monocytes 0.3 thou/uL (0.11-0.59); %Eosinophils 0.1 % (0.0-10.0); %Lymphocytes 12.2 % (21.0-51.0); %Monocytes 6.7 % (0.0-10.0); Hemoglobin 8.5 g/dL (12.0-16.0); Mean Corpuscular Volume 81.1 fL (78.0-98.0); Mean Platelet Volume 9.9 fL (7.4-10.4); Platelet Count 201 thou/uL (130-400); RBC Distribution Width 15.8 % (11.5-14.5); Red Blood Cell (RBC) Count 3.26 mill/uL (4.20-5.40); White Blood Cell (WBC) Count 3.7 thou/uL (4.8-10.8)
[2020-11-06 05:42] LABS: ALT (SGPT) 12 U/L (8-55); AST (SGOT) 18 U/L (5-34); Albumin 2.8 g/dL (3.5-5.0); Alkaline Phosphatase 87 U/L (40-110); Anion Gap 18 mmol/L (10-20); BUN (Urea Nitrogen) 64 mg/dL (9.8-20.1); Bilirubin, Total 0.3 mg/dL (0.2-1.2); Calc. Creatinine Clearance 16 mL/min (70-130); Calcium 7.1 mg/dL (7.8-10.44); Carbon Dioxide 16 mmol/L (22-29); Chloride 106 mmol/L (98-107); Globulin 2.9 g/dL (2.4-3.5); Glucose 120 mg/dL (70-105); Potassium 4.6 mmol/L (3.5-5.1); Protein, Total 5.7 g/dL (6.0-8.3); Sodium 135 mmol/L (136-145)
[2020-11-06] MEDS ORDERED: Heparin 10,000 UNITS/ 10 ML VIAL ONE (08:50)
[2020-11-06] MEDS: Dexamethasone 4 MG TAB PO SCH (08:55)
[2020-11-06] MEDS: Carvedilol 25 MG TAB PO SCH ×2 (08:55→21:08)
[2020-11-06] MEDS: Cholecalciferol (Vitamin D3) 400 UNITS TAB PO SCH (08:56)
[2020-11-06] MEDS: Aspirin 81 mg Enteric Coated Tablet PO SCH (08:56)
[2020-11-06] MEDS: hydrALAZINE 25 MG TAB PO SCH ×3 (08:57→21:07)
[2020-11-06] MEDS: Heparin 5,000 UNITS/ML VIAL SC SCH ×3 (08:57→21:07)
[2020-11-06] MEDS: Amlodipine 10 MG TAB PO SCH (08:57)
[2020-11-06] MEDS: Acetaminophen 325 MG TAB PO PRN (09:29)
[2020-11-06 10:19] LABS: HBSAB Concentration Less than 8.00 mIU/mL; HBSAg Index 0.37 S/CO (0-0.99); Hep B Core Total Ab Non-Reactive (NonReactive); Hep B Core Total Index 0.17 S/CO (0-0.79); Hep B Surf AB Non-Reactive (NonReactive); Hep B Surf Ag Non-Reactive S/CO (NonReactive); Hep C IgG Ab Non-Reactive (NonReactive); Hep C Index 0.06 S/CO (0-0.79)
[2020-11-06] MEDS: Azithromycin 500 MG in Sodium Chloride 0.9% 250 ML 250 ML IVPB SCH (12:24)
[2020-11-06] MEDS: cefTRIAXone\\ROCEPHIN 1 GM in Sodium Chloride 0.9% 100 ML IVPB SCH (13:29)
[2020-11-06] MEDS: Atorvastatin Calcium 40 MG TAB PO SCH (21:08)
[2020-11-07 04:53] LABS: #Lymphocytes 0.4 thou/uL (1.20-3.40); #Monocytes 0.4 thou/uL (0.11-0.59); %Basophils 0.2 % (0.0-1.0); %Eosinophils 0.1 % (0.0-10.0); %Lymphocytes 9.2 % (21.0-51.0); %Monocytes 7.4 % (0.0-10.0); %Neutrophils 83.1 % (42.0-75.0); Hemoglobin 8.1 g/dL (12.0-16.0); Mean Corpuscular HGB CONC 31.2 g/dL (32.0-36.0); Mean Corpuscular Hemoglobin 25.2 pg (27.0-31.0); Mean Platelet Volume 9.7 fL (7.4-10.4); Platelet Count 266 thou/uL (130-400); RBC Distribution Width 15.9 % (11.5-14.5); White Blood Cell (WBC) Count 4.8 thou/uL (4.8-10.8)
[2020-11-07 05:12] LABS: ALT (SGPT) 11 U/L (8-55); AST (SGOT) 18 U/L (5-34); Albumin 2.9 g/dL (3.5-5.0); Alkaline Phosphatase 88 U/L (40-110); Anion Gap 17 mmol/L (10-20); BUN (Urea Nitrogen) 52 mg/dL (9.8-20.1); Bilirubin, Total 0.3 mg/dL (0.2-1.2); Calc. Creatinine Clearance 19 mL/min (70-130); Calcium 6.9 mg/dL (7.8-10.44); Carbon Dioxide 21 mmol/L (22-29); Chloride 103 mmol/L (98-107); Glucose 111 mg/dL (70-105); Potassium 4.5 mmol/L (3.5-5.1); Protein, Total 5.9 g/dL (6.0-8.3); Sodium 136 mmol/L (136-145)
[2020-11-07] MEDS: Cholecalciferol (Vitamin D3) 400 UNITS TAB PO SCH (08:22)
[2020-11-07] MEDS: hydrALAZINE 25 MG TAB PO SCH ×3 (08:22→21:39)
[2020-11-07] MEDS: Amlodipine 10 MG TAB PO SCH (08:22)
[2020-11-07] MEDS: Aspirin 81 mg Enteric Coated Tablet PO SCH (08:22)
[2020-11-07] MEDS: Dexamethasone 4 MG TAB PO SCH (08:23)
[2020-11-07] MEDS: Heparin 5,000 UNITS/ML VIAL SC SCH ×3 (08:23→21:41)
[2020-11-07] MEDS: Carvedilol 25 MG TAB PO SCH ×2 (08:24→21:41)
[2020-11-07] MEDS ORDERED: Heparin 10,000 UNITS/ 10 ML VIAL ONE (08:44)
[2020-11-07] MEDS: cefTRIAXone\\ROCEPHIN 1 GM in Sodium Chloride 0.9% 100 ML IVPB SCH (11:23)
[2020-11-07 12:01] LABS: ANA Symphony (Qualitative) Negative (Negative); ANA Symphony (Quantitative) 0.3 Ratio (< 0.7 Negative)
[2020-11-07] MEDS: Atorvastatin Calcium 40 MG TAB PO SCH (21:39)
[2020-11-08 06:08] LABS: #Lymphocytes 0.7 thou/uL (1.20-3.40); #Monocytes 0.5 thou/uL (0.11-0.59); #Neutrophils 4.2 thou/uL (1.40-6.50); %Eosinophils 0.1 % (0.0-10.0); %Lymphocytes 13.5 % (21.0-51.0); %Monocytes 8.3 % (0.0-10.0); %Neutrophils 78.1 % (42.0-75.0); Hemoglobin 8.1 g/dL (12.0-16.0); Mean Corpuscular Hemoglobin 25.2 pg (27.0-31.0); Mean Corpuscular Volume 81.4 fL (78.0-98.0); Mean Platelet Volume 9.3 fL (7.4-10.4); Platelet Count 276 thou/uL (130-400); RBC Distribution Width 15.6 % (11.5-14.5); Red Blood Cell (RBC) Count 3.23 mill/uL (4.20-5.40); White Blood Cell (WBC) Count 5.4 thou/uL (4.8-10.8)
[2020-11-08 06:17] LABS: ALT (SGPT) 11 U/L (8-55); AST (SGOT) 20 U/L (5-34); Albumin 2.6 g/dL (3.5-5.0); Alkaline Phosphatase 87 U/L (40-110); Anion Gap 14 mmol/L (10-20); BUN (Urea Nitrogen) 40 mg/dL (9.8-20.1); Bilirubin, Total 0.3 mg/dL (0.2-1.2); Calc. Creatinine Clearance 22 mL/min (70-130); Calcium 6.8 mg/dL (7.8-10.44); Carbon Dioxide 27 mmol/L (22-29); Chloride 101 mmol/L (98-107); Glucose 101 mg/dL (70-105); Protein, Total 5.6 g/dL (6.0-8.3); Sodium 138 mmol/L (136-145)
[2020-11-08] MEDS: Aspirin 81 mg Enteric Coated Tablet PO SCH (07:49)
[2020-11-08] MEDS: Cholecalciferol (Vitamin D3) 400 UNITS TAB PO SCH (07:49)
[2020-11-08] MEDS: Carvedilol 25 MG TAB PO SCH (07:50)
[2020-11-08] MEDS: hydrALAZINE 25 MG TAB PO SCH ×3 (07:50→19:55)
[2020-11-08] MEDS: Amlodipine 10 MG TAB PO SCH (07:52)
[2020-11-08] MEDS: Dexamethasone 4 MG TAB PO SCH (07:52)
[2020-11-08] MEDS: Heparin 5,000 UNITS/ML VIAL SC SCH ×3 (07:54→19:55)
[2020-11-08] MEDS ORDERED: Tuberculin PPD 0.1 ML VIAL I-DERMAL SCH ×2 (09:30)
[2020-11-08] MEDS: Atorvastatin Calcium 40 MG TAB PO SCH (19:55)
[2020-11-08] MEDS: Carvedilol 3.125 MG TAB PO SCH (19:56)
[2020-11-09 06:02] LABS: #Monocytes 0.5 thou/uL (0.11-0.59); #Neutrophils 5.1 thou/uL (1.40-6.50); %Basophils 0.4 % (0.0-1.0); %Eosinophils 0.4 % (0.0-10.0); %Lymphocytes 15.3 % (21.0-51.0); %Monocytes 7.4 % (0.0-10.0); %Neutrophils 76.4 % (42.0-75.0); Hemoglobin 8.3 g/dL (12.0-16.0); Mean Corpuscular HGB CONC 32.1 g/dL (32.0-36.0); Mean Corpuscular Volume 80.9 fL (78.0-98.0); Mean Platelet Volume 9.1 fL (7.4-10.4); Platelet Count 287 thou/uL (130-400); RBC Distribution Width 15.3 % (11.5-14.5); White Blood Cell (WBC) Count 6.6 thou/uL (4.8-10.8)
[2020-11-09 06:23] LABS: ALT (SGPT) 18 U/L (8-55); AST (SGOT) 30 U/L (5-34); Albumin 2.7 g/dL (3.5-5.0); Alkaline Phosphatase 113 U/L (40-110); Anion Gap 16 mmol/L (10-20); BUN (Urea Nitrogen) 50 mg/dL (9.8-20.1); Bilirubin, Total 0.3 mg/dL (0.2-1.2); Calc. Creatinine Clearance 16 mL/min (70-130); Calcium 6.4 mg/dL (7.8-10.44); Carbon Dioxide 25 mmol/L (22-29); Chloride 101 mmol/L (98-107); Globulin 2.9 g/dL (2.4-3.5); Glucose 110 mg/dL (70-105); Potassium 3.8 mmol/L (3.5-5.1); Protein, Total 5.6 g/dL (6.0-8.3); Sodium 138 mmol/L (136-145)
[2020-11-09] MEDS: Heparin 5,000 UNITS/ML VIAL SC SCH ×3 (08:01→21:45)
[2020-11-09] MEDS: hydrALAZINE 25 MG TAB PO SCH ×3 (08:03→21:45)
[2020-11-09] MEDS: Lisinopril 5 MG TAB PO SCH (08:03)
[2020-11-09] MEDS: Amlodipine 10 MG TAB PO SCH (08:04)
[2020-11-09] MEDS: Aspirin 81 mg Enteric Coated Tablet PO SCH (08:04)
[2020-11-09] MEDS: Carvedilol 3.125 MG TAB PO SCH ×3 (08:04→21:45)
[2020-11-09] MEDS ORDERED: Heparin 10,000 UNITS/ 10 ML VIAL ONE (08:46)
[2020-11-09] MEDS ORDERED: Ergocalciferol 1.25 MG(50,000 UNITS) CAP PO SCH (09:00)
[2020-11-09] MEDS: Atorvastatin Calcium 40 MG TAB PO SCH (21:44)
[2020-11-10] MEDS ORDERED: cloNIDine 0.1 MG TAB PO SCH (00:15)
[2020-11-10 06:05] LABS: #Eosinphils 0.1 thou/uL (0.0-0.7); #Lymphocytes 1.9 thou/uL (1.20-3.40); #Monocytes 0.6 thou/uL (0.11-0.59); #Neutrophils 6.9 thou/uL (1.40-6.50); %Eosinophils 1.1 % (0.0-10.0); %Lymphocytes 20.1 % (21.0-51.0); %Monocytes 6.1 % (0.0-10.0); %Neutrophils 72.7 % (42.0-75.0); Hemoglobin 9.2 g/dL (12.0-16.0); Mean Corpuscular HGB CONC 31.5 g/dL (32.0-36.0); Mean Corpuscular Hemoglobin 25.5 pg (27.0-31.0); Mean Corpuscular Volume 80.7 fL (78.0-98.0); Platelet Count 344 thou/uL (130-400); Red Blood Cell (RBC) Count 3.62 mill/uL (4.20-5.40); White Blood Cell (WBC) Count 9.5 thou/uL (4.8-10.8)
[2020-11-10 06:26] LABS: ALT (SGPT) 38 U/L (8-55); AST (SGOT) 66 U/L (5-34); Albumin 2.8 g/dL (3.5-5.0); Alkaline Phosphatase 139 U/L (40-110); Anion Gap 15 mmol/L (10-20); BUN (Urea Nitrogen) 30 mg/dL (9.8-20.1); Bilirubin, Total 0.5 mg/dL (0.2-1.2); Calc. Creatinine Clearance 21 mL/min (70-130); Calcium 6.8 mg/dL (7.8-10.44); Carbon Dioxide 28 mmol/L (22-29); Chloride 99 mmol/L (98-107); Glucose 100 mg/dL (70-105); Potassium 3.5 mmol/L (3.5-5.1); Protein, Total 5.8 g/dL (6.0-8.3); Sodium 138 mmol/L (136-145)
[2020-11-10] MEDS ORDERED: READ PPD TEST SITE PO SCH (09:00)
[2020-11-10] MEDS: Heparin 5,000 UNITS/ML VIAL SC SCH ×3 (09:21→20:36)
[2020-11-10] MEDS: Amlodipine 10 MG TAB PO SCH (09:24)
[2020-11-10] MEDS: Carvedilol 3.125 MG TAB PO SCH ×2 (09:24→20:35)
[2020-11-10] MEDS: Aspirin 81 mg Enteric Coated Tablet PO SCH (09:24)
[2020-11-10] MEDS: Lisinopril 5 MG TAB PO SCH (09:25)
[2020-11-10] MEDS: hydrALAZINE 25 MG TAB PO SCH ×3 (09:25→20:36)
[2020-11-10] MEDS: Atorvastatin Calcium 40 MG TAB PO SCH (20:35)
[2020-11-11 05:18] LABS: Hemoglobin 8.6 g/dL (12.0-16.0); Mean Corpuscular HGB CONC 32.3 g/dL (32.0-36.0); Mean Corpuscular Hemoglobin 26.4 pg (27.0-31.0); Mean Corpuscular Volume 81.7 fL (78.0-98.0); Mean Platelet Volume 8.7 fL (7.4-10.4); Platelet Count 304 thou/uL (130-400); RBC Distribution Width 15.1 % (11.5-14.5); Red Blood Cell (RBC) Count 3.27 mill/uL (4.20-5.40); White Blood Cell (WBC) Count 8.5 thou/uL (4.8-10.8)
[2020-11-11 05:40] LABS: ALT (SGPT) 26 U/L (8-55); AST (SGOT) 31 U/L (5-34); Albumin 2.5 g/dL (3.5-5.0); Alkaline Phosphatase 116 U/L (40-110); Anion Gap 15 mmol/L (10-20); BUN (Urea Nitrogen) 37 mg/dL (9.8-20.1); Bilirubin, Total 0.3 mg/dL (0.2-1.2); Calc. Creatinine Clearance 17 mL/min (70-130); Calcium 6.3 mg/dL (7.8-10.44); Carbon Dioxide 26 mmol/L (22-29); Chloride 100 mmol/L (98-107); Globulin 2.6 g/dL (2.4-3.5); Glucose 94 mg/dL (70-105); Potassium 3.3 mmol/L (3.5-5.1); Protein, Total 5.1 g/dL (6.0-8.3); Sodium 138 mmol/L (136-145)
[2020-11-11 05:51] LABS: Band 1 % (5-11); Eosinophils 1 % (0-10); Lymphocytes 23 % (21-51); MDiff Complete? YES; Metamyelocyte 3 % (0-0); Monocytes 2 % (0-10); Neutrophil 70 % (42-75)
[2020-11-11] MEDS ORDERED: Potassium Chloride 20 MEQ TAB PO SCH (07:00)
[2020-11-11] MEDS: Aspirin 81 mg Enteric Coated Tablet PO SCH (08:40)
[2020-11-11] MEDS: Amlodipine 10 MG TAB PO SCH (08:40)
[2020-11-11] MEDS: Lisinopril 5 MG TAB PO SCH (08:41)
[2020-11-11] MEDS: Carvedilol 3.125 MG TAB PO SCH ×2 (08:41→20:27)
[2020-11-11] MEDS: hydrALAZINE 25 MG TAB PO SCH ×3 (08:41→20:26)
[2020-11-11] MEDS: Heparin 5,000 UNITS/ML VIAL SC SCH ×3 (08:42→20:25)
[2020-11-11] MEDS ORDERED: CEFAZOLIN 2 GM in Premix Bag 1 BAG IVPB SCH (17:00)
[2020-11-11] MEDS ORDERED: Lidocaine 1% (PF) 30 ML VIAL ONE (19:31)
[2020-11-11] MEDS: Atorvastatin Calcium 40 MG TAB PO SCH (20:27)
[2020-11-12 05:23] LABS: ALT (SGPT) 26 U/L (8-55); AST (SGOT) 30 U/L (5-34); Albumin 2.4 g/dL (3.5-5.0); Alkaline Phosphatase 121 U/L (40-110); Anion Gap 13 mmol/L (10-20); BUN (Urea Nitrogen) 43 mg/dL (9.8-20.1); Bilirubin, Total 0.4 mg/dL (0.2-1.2); Calc. Creatinine Clearance 16 mL/min (70-130); Calcium 6.5 mg/dL (7.8-10.44); Carbon Dioxide 26 mmol/L (22-29); Chloride 102 mmol/L (98-107); Globulin 2.9 g/dL (2.4-3.5); Glucose 79 mg/dL (70-105); Potassium 3.5 mmol/L (3.5-5.1); Protein, Total 5.3 g/dL (6.0-8.3); Sodium 137 mmol/L (136-145)
[2020-11-12 06:50] LABS: Hemoglobin 8.7 g/dL (12.0-16.0); Mean Corpuscular HGB CONC 32.7 g/dL (32.0-36.0); Mean Corpuscular Hemoglobin 26.4 pg (27.0-31.0); Mean Corpuscular Volume 80.8 fL (78.0-98.0); Mean Platelet Volume 8.8 fL (7.4-10.4); Platelet Count 316 thou/uL (130-400); RBC Distribution Width 15.3 % (11.5-14.5); White Blood Cell (WBC) Count 8.4 thou/uL (4.8-10.8)
[2020-11-12 06:53] LABS: Band 3 % (5-11); Eosinophils 2 % (0-10); Lymphocytes 18 % (21-51); MDiff Complete? YES; Monocytes 11 % (0-10); Myelocyte 2 % (0-0); Neutrophil 64 % (42-75)
[2020-11-12] MEDS ORDERED: Carvedilol 3.125 MG TAB PO SCH (06:59)
[2020-11-12] MEDS: Heparin 5,000 UNITS/ML VIAL SC SCH ×3 (08:17→22:35)
[2020-11-12] MEDS: hydrALAZINE 25 MG TAB PO SCH ×3 (08:18→22:36)
[2020-11-12] MEDS: Lisinopril 5 MG TAB PO SCH (08:19)
[2020-11-12] MEDS: Amlodipine 10 MG TAB PO SCH (08:19)
[2020-11-12] MEDS: Aspirin 81 mg Enteric Coated Tablet PO SCH (08:19)
[2020-11-12] MEDS: Carvedilol 6.25 MG TAB PO SCH ×2 (08:19→22:36)
[2020-11-12] MEDS ORDERED: Lisinopril 5 MG TAB PO SCH ×2 (08:45→09:00)
[2020-11-12] MEDS: Atorvastatin Calcium 40 MG TAB PO SCH (22:35)
[2020-11-13 05:47] LABS: #Basophils 0.1 thou/uL (0.0-0.2); #Eosinphils 0.2 thou/uL (0.0-0.7); #Lymphocytes 1.7 thou/uL (1.20-3.40); #Monocytes 0.6 thou/uL (0.11-0.59); #Neutrophils 4.8 thou/uL (1.40-6.50); %Basophils 0.8 % (0.0-1.0); %Eosinophils 3.2 % (0.0-10.0); %Lymphocytes 23.1 % (21.0-51.0); %Monocytes 7.4 % (0.0-10.0); %Neutrophils 65.5 % (42.0-75.0); Hemoglobin 7.8 g/dL (12.0-16.0); Mean Corpuscular HGB CONC 30.7 g/dL (32.0-36.0); Mean Corpuscular Hemoglobin 25.1 pg (27.0-31.0); Mean Corpuscular Volume 81.8 fL (78.0-98.0); Mean Platelet Volume 8.8 fL (7.4-10.4); Platelet Count 301 thou/uL (130-400); RBC Distribution Width 15.5 % (11.5-14.5); Red Blood Cell (RBC) Count 3.09 mill/uL (4.20-5.40); White Blood Cell (WBC) Count 7.4 thou/uL (4.8-10.8)
[2020-11-13 06:08] LABS: ALT (SGPT) 20 U/L (8-55); AST (SGOT) 21 U/L (5-34); Albumin 2.3 g/dL (3.5-5.0); Alkaline Phosphatase 104 U/L (40-110); Anion Gap 13 mmol/L (10-20); BUN (Urea Nitrogen) 45 mg/dL (9.8-20.1); Bilirubin, Total 0.4 mg/dL (0.2-1.2); Calc. Creatinine Clearance 14 mL/min (70-130); Calcium 6.5 mg/dL (7.8-10.44); Carbon Dioxide 25 mmol/L (22-29); Chloride 101 mmol/L (98-107); Globulin 2.7 g/dL (2.4-3.5); Glucose 79 mg/dL (70-105); Potassium 3.4 mmol/L (3.5-5.1); Sodium 136 mmol/L (136-145)
[2020-11-13] MEDS: hydrALAZINE 25 MG TAB PO SCH ×3 (08:18→20:51)
[2020-11-13] MEDS: Aspirin 81 mg Enteric Coated Tablet PO SCH (08:18)
[2020-11-13] MEDS: Amlodipine 10 MG TAB PO SCH (08:19)
[2020-11-13] MEDS: Lisinopril 10 MG TAB PO SCH (08:19)
[2020-11-13] MEDS: Heparin 5,000 UNITS/ML VIAL SC SCH ×3 (08:20→20:51)
[2020-11-13] MEDS: Carvedilol 6.25 MG TAB PO SCH ×2 (08:20→20:51)
[2020-11-13] MEDS ORDERED: CEFAZOLIN 2 GM in Premix Bag 1 BAG IVPB SCH (15:00)
[2020-11-13] MEDS: EPOETIN ALFA-EPBX (ESRD) 10,000 UNIT/ML VIAL IVP SCH (17:47)
[2020-11-13] MEDS: Atorvastatin Calcium 40 MG TAB PO SCH (20:50)
[2020-11-14] MEDS: Carvedilol 6.25 MG TAB PO SCH ×2 (05:10→20:12)
[2020-11-14 05:24] LABS: #Eosinphils 0.1 thou/uL (0.0-0.7); #Lymphocytes 1.5 thou/uL (1.20-3.40); #Monocytes 0.6 thou/uL (0.11-0.59); #Neutrophils 4.5 thou/uL (1.40-6.50); %Basophils 0.2 % (0.0-1.0); %Eosinophils 2.2 % (0.0-10.0); %Lymphocytes 21.5 % (21.0-51.0); %Monocytes 9.5 % (0.0-10.0); %Neutrophils 66.6 % (42.0-75.0); Hemoglobin 7.9 g/dL (12.0-16.0); Mean Corpuscular HGB CONC 31.1 g/dL (32.0-36.0); Mean Corpuscular Hemoglobin 25.6 pg (27.0-31.0); Mean Corpuscular Volume 82.2 fL (78.0-98.0); Platelet Count 285 thou/uL (130-400); RBC Distribution Width 15.4 % (11.5-14.5); Red Blood Cell (RBC) Count 3.09 mill/uL (4.20-5.40); White Blood Cell (WBC) Count 6.7 thou/uL (4.8-10.8)
[2020-11-14 05:51] LABS: ALT (SGPT) 18 U/L (8-55); AST (SGOT) 18 U/L (5-34); Albumin 2.4 g/dL (3.5-5.0); Alkaline Phosphatase 99 U/L (40-110); Anion Gap 11 mmol/L (10-20); BUN (Urea Nitrogen) 16 mg/dL (9.8-20.1); Bilirubin, Total 0.4 mg/dL (0.2-1.2); Calc. Creatinine Clearance 25 mL/min (70-130); Calcium 7.4 mg/dL (7.8-10.44); Carbon Dioxide 30 mmol/L (22-29); Chloride 101 mmol/L (98-107); Globulin 2.7 g/dL (2.4-3.5); Glucose 79 mg/dL (70-105); Potassium 3.5 mmol/L (3.5-5.1); Protein, Total 5.1 g/dL (6.0-8.3); Sodium 138 mmol/L (136-145)
[2020-11-14] MEDS: Amlodipine 10 MG TAB PO SCH (08:48)
[2020-11-14] MEDS: hydrALAZINE 25 MG TAB PO SCH ×3 (08:48→20:12)
[2020-11-14] MEDS: Heparin 5,000 UNITS/ML VIAL SC SCH ×3 (08:55→20:12)
[2020-11-14] MEDS: Aspirin 81 mg Enteric Coated Tablet PO SCH (08:55)
[2020-11-14] MEDS: Lisinopril 10 MG TAB PO SCH (08:55)
[2020-11-14] MEDS ORDERED: Midazolam HCl 2 mg/2 ml Vial ONE ×2 (10:40→10:44)
[2020-11-14] MEDS ORDERED: Fentanyl 100 MCG/2 ML VIAL ONE ×2 (10:40→10:44)
[2020-11-14] MEDS ORDERED: Heparin 10,000 UNITS/ 10 ML VIAL ONE (10:43)
[2020-11-14] MEDS ORDERED: Ioversol 68 % 50 ML VIAL ONE (10:43)
[2020-11-14] MEDS ORDERED: Lidocaine 1% w/Epinephrine 1:100K 20 ML VIAL ONE (10:43)
[2020-11-14] MEDS ORDERED: Bupivacaine PF 0.5% 30 ML VIAL ONE (10:43)
[2020-11-14] MEDS ORDERED: Heparin 5,000 UNITS/ML VIAL ONE (10:43)
[2020-11-14] MEDS ORDERED: Protamine Sulfate 50 MG/5 ML VIAL ONE (10:43)
[2020-11-14] MEDS ORDERED: Sodium Chloride 0.9% 30 ML ONE (10:43)
[2020-11-14] MEDS ORDERED: Propofol 500 MG/50 ML VIAL ONE (10:44)
[2020-11-14] MEDS ORDERED: Ondansetron PF 4 MG/2 ML Vial ONE (11:10)
[2020-11-14 11:12] VITALS: BMI 33.3
[2020-11-14] MEDS ORDERED: Bupivacaine HCl 0.5%/Epinephrine 1:200,000/PF 30 ml Vial ONE (11:16)
[2020-11-14] MEDS ORDERED: Succinylcholine 200 MG/10 ml SYRINGE FS ONE (11:16)
[2020-11-14] MEDS ORDERED: Lidocaine 1% PF 5 ML VIAL ONE ×2 (11:16)
[2020-11-14] MEDS ORDERED: ePHEDrine Sulfate 50 MG/10 ML VIAL ONE (11:16)
[2020-11-14] MEDS ORDERED: Metoclopramide HCl 10 MG/2 ML VIAL ONE (11:16)
[2020-11-14] MEDS ORDERED: Dexamethasone 20 MG/5 ML VIAL ONE (11:16)
[2020-11-14] MEDS ORDERED: diphenhydrAMINE 50 MG/ML VIAL ONE (11:16)
[2020-11-14] MEDS ORDERED: PROPOFOL 200 MG/20 ML VIAL ONE (11:16)
[2020-11-14] MEDS ORDERED: Acetaminophen 500 MG TAB PO PRN (13:13)
[2020-11-14] MEDS ORDERED: Promethazine HCl 25 MG/ML VIAL SLOW IVP PRN (13:19)
[2020-11-14] MEDS ORDERED: Ondansetron HCl/PF 4 MG/2 ML Vial IVP PRN (13:19)
[2020-11-14] MEDS ORDERED: Meperidine HCl/PF 25 MG/ML VIAL SLOW IVP PRN (13:19)
[2020-11-14] MEDS: Atorvastatin Calcium 40 MG TAB PO SCH (20:11)
[2020-11-15 05:28] LABS: #Basophils 0.1 thou/uL (0.0-0.2); #Lymphocytes 0.8 thou/uL (1.20-3.40); #Monocytes 0.5 thou/uL (0.11-0.59); #Neutrophils 7.3 thou/uL (1.40-6.50); %Basophils 0.9 % (0.0-1.0); %Eosinophils 0.2 % (0.0-10.0); %Lymphocytes 9.2 % (21.0-51.0); %Monocytes 5.8 % (0.0-10.0); %Neutrophils 83.9 % (42.0-75.0); Hemoglobin 7.7 g/dL (12.0-16.0); Mean Corpuscular HGB CONC 29.9 g/dL (32.0-36.0); Mean Corpuscular Hemoglobin 24.8 pg (27.0-31.0); Mean Corpuscular Volume 82.8 fL (78.0-98.0); Platelet Count 326 thou/uL (130-400); RBC Distribution Width 15.3 % (11.5-14.5); Red Blood Cell (RBC) Count 3.12 mill/uL (4.20-5.40); White Blood Cell (WBC) Count 8.6 thou/uL (4.8-10.8)
[2020-11-15 05:56] LABS: ALT (SGPT) 14 U/L (8-55); AST (SGOT) 17 U/L (5-34); Albumin 2.5 g/dL (3.5-5.0); Alkaline Phosphatase 97 U/L (40-110); Anion Gap 11 mmol/L (10-20); BUN (Urea Nitrogen) 21 mg/dL (9.8-20.1); Bilirubin, Total 0.2 mg/dL (0.2-1.2); Calc. Creatinine Clearance 20 mL/min (70-130); Calcium 7.5 mg/dL (7.8-10.44); Carbon Dioxide 30 mmol/L (22-29); Chloride 102 mmol/L (98-107); Globulin 3.1 g/dL (2.4-3.5); Glucose 110 mg/dL (70-105); Potassium 3.7 mmol/L (3.5-5.1); Protein, Total 5.6 g/dL (6.0-8.3); Sodium 139 mmol/L (136-145)
[2020-11-15] MEDS ORDERED: Heparin 10,000 UNITS/ 10 ML VIAL ONE (09:12)
[2020-11-15] MEDS: Heparin 5,000 UNITS/ML VIAL SC SCH (11:13)
[2020-11-15] MEDS: Aspirin 81 mg Enteric Coated Tablet PO SCH (11:13)
[2020-11-15] MEDS: Amlodipine 10 MG TAB PO SCH (11:13)
[2020-11-15] MEDS: Carvedilol 6.25 MG TAB PO SCH (11:13)
[2020-11-15] MEDS: hydrALAZINE 25 MG TAB PO SCH (11:13)
[2020-11-15] MEDS: Lisinopril 10 MG TAB PO SCH (11:14)
[2020-11-15] MEDS: EPOETIN ALFA-EPBX (ESRD) 10,000 UNIT/ML VIAL IVP SCH (13:20)
[2020-11-15 17:23] VITALS: BP 132/63; TEMP 98.3
== END 2020-11-15 18:14 | disposition home or self-care (01) | DRG 673 ==
LOC: ERS 13:39 → 2NO 16:07 → 2SW 11-05 00:38
PROVIDERS: ADMIT Family Medicine; ATTEND Family Medicine
PROC: 06HM33Z Insertion of Infusion Device into Right Femoral Vein, Percutaneous Approach (ICD-10-PCS; principal; 2020-11-06)
PROC: 5A1D70Z Performance of Urinary Filtration, Intermittent, Less than 6 Hours Per Day (ICD-10-PCS; 2020-11-07)
PROC: 031B0JF Bypass Right Radial Artery to Lower Arm Vein with Synthetic Substitute, Open Approach (ICD-10-PCS; 2020-11-14)
PROC: 0JH63XZ Insertion of Tunneled Vascular Access Device into Chest Subcutaneous Tissue and Fascia, Percutaneous Approach (ICD-10-PCS; 2020-11-14)
PROC: 02H633Z Insertion of Infusion Device into Right Atrium, Percutaneous Approach (ICD-10-PCS; 2020-11-14)
PROC: B548ZZA Ultrasonography of Superior Vena Cava, Guidance (ICD-10-PCS; 2020-11-14)
PROC: B518ZZA Fluoroscopy of Superior Vena Cava, Guidance (ICD-10-PCS; 2020-11-14)
DX: N17.9 Acute kidney failure, unspecified (principal); U07.1 COVID-19; I50.33 Acute on chronic diastolic (congestive) heart failure; J96.01 Acute respiratory failure with hypoxia; J12.82 Pneumonia due to coronavirus disease 2019; I13.2 Hypertensive heart and chronic kidney disease with heart failure and with stage 5 chronic kidney disease, or end stage renal disease; E87.2 Acidosis; E87.1 Hypo-osmolality and hyponatremia; N18.6 End stage renal disease; E86.0 Dehydration; M54.5 Low back pain; M25.551 Pain in right hip; M25.552 Pain in left hip; R53.81 Other malaise; I07.1 Rheumatic tricuspid insufficiency; I25.10 Atherosclerotic heart disease of native coronary artery without angina pectoris; E11.22 Type 2 diabetes mellitus with diabetic chronic kidney disease; R79.89 Other specified abnormal findings of blood chemistry; E78.5 Hyperlipidemia, unspecified; E11.42 Type 2 diabetes mellitus with diabetic polyneuropathy; D63.1 Anemia in chronic kidney disease; R00.1 Bradycardia, unspecified; E88.09 Other disorders of plasma-protein metabolism, not elsewhere classified; D63.8 Anemia in other chronic diseases classified elsewhere; E61.1 Iron deficiency; E55.9 Vitamin D deficiency, unspecified; E87.5 Hyperkalemia; R50.9 Fever, unspecified; E66.01 Morbid (severe) obesity due to excess calories; Z68.35 Body mass index [BMI] 35.0-35.9, adult; Z79.82 Long term (current) use of aspirin; Z79.899 Other long term (current) drug therapy; Z90.49 Acquired absence of other specified parts of digestive tract; Z90.710 Acquired absence of both cervix and uterus; Z89.422 Acquired absence of other left toe(s); Z87.891 Personal history of nicotine dependence
CPT/HCPCS: 36415; 36416; 71045; 76770; 80053; 81003; 81015; 82306; 82553; 82570; 82728; 83036; 83540; 83550; 83690; 83880; 83970; 84100; 84145; 84156; 84300; 84443; 84484; 85025; 86038; 86225; 86580; 86704; 86706; 86803; 87340; 90935; 93005; 93970; C1752; G0257; J0456; J0690; J0696; J1100; J1200; J1642; J1644; J1815; J2001; J2250; J2405; J2704; J2720; J2765; J3010; J3490; J7050; J7070; J8540; P9047; Q0162; Q5105; Q9967; S0020; U0002; U0005